=== PATIENT | female | born 1960 | race Caucasian/White ===

== ENCOUNTER → 2019-09-28 09:20 | Outpatient (BNVA) | payer MEDICARE, SELFPAY | PROVIDERS: Visit Provider Family Medicine | DX: I10 Essential (primary) hypertension (principal); E11.9 Type 2 diabetes mellitus without complications; Z79.4 Long term (current) use of insulin; E78.5 Hyperlipidemia, unspecified; E55.9 Vitamin D deficiency, unspecified; E66.9 Obesity, unspecified | CPT/HCPCS: 80053; 80061; 82044; 82306; 83036; 85025 ==

== ENCOUNTER 2019-10-17 16:27 | Emergency (ER) | payer MEDICARE, SELFPAY ==
[2019-10-17 16:44] VITALS: BP 128/69; PULSE 75; RESP 16; TEMP 36.6; O2SAT 96; BMI 35.6
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
[2019-10-17 18:03] VITALS: BP 141/80; PULSE 74; RESP 16; O2SAT 96
--- NOTE | 2019-10-17 18:05 | PC.NURSE ---
UPON ASSESSMENT PT IS IN NAD. PT STATES THAT SHE HAD A GROUND LEVEL FALL 10/11 AND NOW CO LF LEFT LATERAL CHEST PAIN.. PT CO OF INCREASED PAIN WITH MOVEMENT. PT DENIES ANY SOB. PT BREATHING IS NONLABORED. RATE AND RHYTHM ARE WNL. PT LUNG SOUNDS TO POSTERIOR AUSCULTATION ARE CLEAR AND EQUAL. IS A&OX3 PT IS CALM AND COOPERATIVE. PT SKIN IS WARM DRY AND PINK.
[2019-10-17] MEDS: ibuprofen 600 mg Tablet PO (18:10)
[2019-10-17 19:57] VITALS: BP 136/78; PULSE 73; RESP 16; O2SAT 97
== END 2019-10-17 19:58 | disposition home or self-care (01) ==
PROVIDERS: Emergency Provider Physician Assistant; PCP Family Medicine
DX: R07.81 Pleurodynia (principal); Z79.84 Long term (current) use of oral hypoglycemic drugs; E78.5 Hyperlipidemia, unspecified; I10 Essential (primary) hypertension; E11.9 Type 2 diabetes mellitus without complications
CPT/HCPCS: 12345; 71101; 76705; 99281; 99283

== ENCOUNTER → 2020-01-05 10:54 | Outpatient (BNVA) | payer MEDICARE, SELFPAY | PROVIDERS: PCP Family Medicine; Visit Provider Family Medicine | DX: E11.9 Type 2 diabetes mellitus without complications (principal); Z79.4 Long term (current) use of insulin | CPT/HCPCS: 80053; 83036 ==

== ENCOUNTER 2020-01-30 11:00 | Outpatient (CLI) | payer MEDICARE, SELFPAY | END 2020-01-30 11:01 | disposition home or self-care (01) | LOC: SLEEP 02-01 11:00 | PROVIDERS: PCP Family Medicine; Visit Provider Family Medicine | DX: G47.34 Idiopathic sleep related nonobstructive alveolar hypoventilation (principal) | CPT/HCPCS: 94762 ==

== ENCOUNTER → 2020-02-03 13:39 | Outpatient (BNVA) | payer MEDICARE, SELFPAY | PROVIDERS: PCP Family Medicine; Visit Provider Family Medicine | DX: M79.641 Pain in right hand (principal); M79.642 Pain in left hand; B86 Scabies | CPT/HCPCS: 85651; 86038; 86140; 86431 ==

== ENCOUNTER → 2020-02-21 12:45 | Outpatient (BNVA) | payer MEDICARE, SELFPAY | PROVIDERS: PCP Family Medicine; Visit Provider Internal Medicine | DX: R76.8 Other specified abnormal immunological findings in serum (principal); M25.50 Pain in unspecified joint; Z11.59 Encounter for screening for other viral diseases; Z11.1 Encounter for screening for respiratory tuberculosis; J34.89 Other specified disorders of nose and nasal sinuses; M54.2 Cervicalgia; Z51.81 Encounter for therapeutic drug level monitoring; M19.042 Primary osteoarthritis, left hand; M19.041 Primary osteoarthritis, right hand; M32.9 Systemic lupus erythematosus, unspecified; D86.9 Sarcoidosis, unspecified | CPT/HCPCS: 36415; 72040; 73120; 85025; 86480; 86704; 86803; 87340; 99203 ==

== ENCOUNTER 2020-02-21 14:02 | Outpatient (CLI) | payer MEDICARE, SELFPAY ==
--- NOTE | 2020-02-21 14:28 | XRR_ITS ---
PROCEDURE INFORMATION: Exam: XR Left Hand Exam date and time: 02/21/2020 2:30 PM Age: 59 years old Clinical indication: Left; Patient HX: C/O hand pain. Elevated abnormal labs; Additional info: R76.8 - other specified abnormal immunological findings in serum TECHNIQUE: Imaging protocol: XR Left hand. Views: 1 or 2 views. COMPARISON: No relevant prior studies available. FINDINGS: Bones/joints: There is moderate osteoarthritis with interphalangeal joint narrowing of multiple digits. Negative for acute bony abnormality is seen. Soft tissues: Normal. XR/XR hand LT 2V [id number] IMPRESSION: 1. Moderate osteoarthritis 2. Otherwise No acute findings.
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
--- NOTE | 2020-02-21 14:28 | XRR_ITS ---
PROCEDURE INFORMATION: Exam: XR Cervical Spine, 2 or 3 Views Exam date and time: 02/21/2020 2:30 PM Age: 59 years old Clinical indication: Neck pain and other: Head pain posterior; Patient HX: C/O head pain posterior; Chronic sinuses issues in past; Additional info: R76.8 - other specified abnormal immunological findings in serum TECHNIQUE: Imaging protocol: XR of the cervical spine, 2 or 3 views. COMPARISON: No relevant prior studies available. FINDINGS: Bones/joints: There is a mild osteoarthritis seen with intervertebral disc space narrowing and bone spurs at multiple levels. No acute fracture. There is loss of cervical lordosis which may reflect muscle spasm. There is minimal spondylolisthesis C2-C3. There is no instability with flexion and extension maneuvers. Soft tissues: Unremarkable. XR/XR cervical spine fl/ex [id number] IMPRESSION: 1. No acute bone abnormality. 2. Minimal anterolisthesis C2-C3. 3. No instability with flexion and extension
== END 2020-02-21 14:03 | disposition home or self-care (01) ==
PROVIDERS: PCP Family Medicine; Visit Provider Internal Medicine
DX: Z51.81 Encounter for therapeutic drug level monitoring (principal); R76.8 Other specified abnormal immunological findings in serum; M19.042 Primary osteoarthritis, left hand; M19.041 Primary osteoarthritis, right hand; M32.9 Systemic lupus erythematosus, unspecified; D86.9 Sarcoidosis, unspecified
CPT/HCPCS: 72040; 73120; 85025; 86480; 86704; 86803; 87340

== ENCOUNTER → 2020-03-19 14:27 | Outpatient (BNVA) | payer MEDICARE, SELFPAY | PROVIDERS: PCP Family Medicine; Visit Provider Internal Medicine | DX: M05.9 Rheumatoid arthritis with rheumatoid factor, unspecified (principal) | CPT/HCPCS: 99213; 99214 ==

== ENCOUNTER → 2020-04-30 10:31 | Outpatient (BNVA) | payer MEDICARE, SELFPAY | PROVIDERS: PCP Family Medicine; Visit Provider Family Medicine | DX: E11.9 Type 2 diabetes mellitus without complications (principal); I10 Essential (primary) hypertension; E78.5 Hyperlipidemia, unspecified; L65.9 Nonscarring hair loss, unspecified; Z79.4 Long term (current) use of insulin | CPT/HCPCS: 80053; 80061; 82043; 83036; 84443 ==

== ENCOUNTER 2020-05-03 12:05 | Emergency (ER) | payer MEDICARE, SELFPAY ==
[2020-05-03 12:35] VITALS: BP 103/60; PULSE 110; RESP 16; TEMP 37.1; O2SAT 96; BMI 35.6
--- NOTE | 2020-05-03 12:57 | ECG_ITS ---
[facility] Test Date: 2020-05-03 Pat Name: Shantelle Dent Department: Room: Gender: Female Precast Molder: : 1960 Requested By: Fatuma Lee Order Number: [id number] Reading MD: KOFFI MALONE Measurements Intervals [place] Rate: 89 P: 53 VA: 183 QRS: 49 QRSD: 95 T: 59 QT: 384 QTc: 468 Interpretive Statements SINUS RHYTHM POSSIBLE ANTERIOR MYOCARDIAL INFARCTION , PROBABLY OLD [30 ms Q WAVE IN V3/V4, OR R < 0.2 mV IN V4] No previous ECG available for comparison Electronically Signed On 05-03-2020 18:17:00 CAN HANDLER by KOFFI MALONE [id number]
--- NOTE | 2020-05-03 12:57 | XR_ITS ---
WS: [id number] PORTABLE CHEST HISTORY: SOB COMPARISON: 10/17/2019 Lungs are clear and well expanded. No pleural effusion or pneumothorax. Cardiac size: Normal. Mediastinum/Aorta: Normal mediastinum. No osseous abnormality seen. XR/XR chest 1V portable [id number] IMPRESSION: Unremarkable portable chest.
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
[2020-05-03 13:23] LABS: Basophils # 0.1 10^3/uL (0.0-0.1); Basophils % 0.7 %; Eosinophils # 0.1 10^3/uL (0.0-0.8); Hematocrit 39.9 % (37.0-47.0); Hemoglobin 13.2 g/dL (11.5-15.3); Lymphocytes # 3.4 10^3/uL (0.8-4.8); Lymphocytes % 30.5 %; Mean Corpuscular HGB Conc 33.1 g/dL (30.0-36.0); Mean Corpuscular Hemoglobin 31.8 pg (28.0-34.0); Mean Corpuscular Volume 96.1 fL (81-99); Mean Platelet Volume 9.1 fL (7.4-10.4); Monocytes # 0.6 10^3/uL (0.2-0.9); Monocytes % 5.2 %; Neutrophils # 6.88 10^3/uL (1.8-7.7); Neutrophils % 62.3 %; Nucleated Red Blood Cells % 0 %; Platelet Count 369 10^3/cmm (130-400); Red Blood Count 4.15 10^6/uL (4.1-5.3); Red Cell Distribution Width 12.4 % (12.1-15.1); White Blood Count 11.1 10^3/uL (4.0-10.0)
[2020-05-03 13:38] LABS: Alanine Aminotransferase 27 U/L (0-33); Albumin Level 4.2 g/dL (3.5-5.2); Alkaline Phosphatase 89 IU/L (35-105); Anion Gap 22.5 (5-19); Aspartate Amino Transferase 17 U/L (0-32); Blood Urea Nitrogen 21 mg/dL (8-23); Calcium 9.4 mg/dL (8.5-10.5); Carbon Dioxide 22 mmol/L (22-29); Chloride 97 mmol/L (98-107); Glomerular Filtration Rate 56.2 mL/min (90-130); Glucose 265 mg/dL (65-115); Lipase 59 U/L (13-60); Osmolality Calculated 298 mOsm/kg (285-295); Potassium 3.5 mmol/L (3.5-5.1); Sodium 138 mmol/L (136-145); Total Bilirubin 0.3 mg/dL (0.15-1.2); Total Protein 7.2 g/dL (6.6-8.7)
[2020-05-03 13:39] LABS: Troponin(5th) Baseline 6 ng/L (0-10)
--- NOTE | 2020-05-03 14:19 | CT_ITS ---
WS: [id number] CT THORACIC SPINE HISTORY: scapula, thoracic spine pain TECHNIQUE: Contiguous 2.5 mm axial images are reviewed to thoracic spine. Images are reformatted in s agittal and coronal planes. All CT scans at [facility] use at least one of these dose opt imization techniques: automated exposure control; mA and/or kV adjustment per patient size (includes targeted exams where dose is matched to clinical indication); or iterative reconstruction. DLP: 2014.08 mGy.cm COMPARISON: None available. Normal posterior thoracic alignment. Very mild disc space narrowing and endplate osteophytes througho ut. No fractures. No central or foraminal stenosis. There is increased soft tissue within the T6-7 LE FT foramen which may be a nerve root sleeve diverticulum. Additional similar increased soft tissue in the T8-9 foramen. No erosion of the vertebral bodies or widening of the foramen. Paravertebral soft tissues are negative. CT/CT thoracic spin wo con* [id number] IMPRESSION: 1. No fracture or significant stenosis. 2. Multilevel mild spondylosis. 3. Minimal soft tissue thickening in the LEFT T6-7 and RIGHT T8-9 foramen. Fav or these are probably benign nerve root sleeve diverticula. No erosive changes or foraminal widening.
--- NOTE | 2020-05-03 14:57 | ECG_ITS ---
[facility] Test Date: 2020-05-03 Pat Name: Shantelle Dent Department: Room: Gender: Female Emergency Planning And Response Manager: : 1960 Requested By: Fatuma Lee Order Number: [id number] Reading MD: KOFFI MALONE Measurements Intervals Rogers Rate: 84 P: 52 MS: 200 QRS: 66 QRSD: 89 T: 62 QT: 386 QTc: 459 Interpretive Statements SINUS RHYTHM Compared to ECG 05/03/2020 13:14:11 Myocardial infarct finding no longer present Electronically Signed On 05-03-2020 18:19:09 SCREWDOWN OPERATOR by KOFFI MALONE [id number]
[2020-05-03 15:33] LABS: Troponin 5 2HR Delta 0 ABS# (0-10)
[2020-05-03 15:56] VITALS: BP 125/80; PULSE 84; RESP 18; O2SAT 97
== END 2020-05-03 15:56 | disposition home or self-care (01) ==
PROVIDERS: Emergency Provider Nurse Practitioner Family; PCP Family Medicine
DX: M47.814 Spondylosis without myelopathy or radiculopathy, thoracic region (principal); Z79.84 Long term (current) use of oral hypoglycemic drugs; E78.5 Hyperlipidemia, unspecified; I10 Essential (primary) hypertension; E11.9 Type 2 diabetes mellitus without complications
CPT/HCPCS: 36415; 71045; 72128; 80053; 83690; 84484; 85025; 93005; 99283

== ENCOUNTER → 2020-05-30 13:54 | Outpatient (BNVA) | payer MEDICARE, SELFPAY | PROVIDERS: PCP Family Medicine; Visit Provider Internal Medicine | DX: E11.9 Type 2 diabetes mellitus without complications (principal); Z79.4 Long term (current) use of insulin; E78.5 Hyperlipidemia, unspecified; N17.9 Acute kidney failure, unspecified | CPT/HCPCS: 99205 ==

== ENCOUNTER 2020-06-07 06:00 | Outpatient (CLI) | payer MEDICARE, SELFPAY | END 2020-06-07 06:01 | disposition home or self-care (01) | PROVIDERS: PCP Family Medicine; Visit Provider Internal Medicine | DX: N17.9 Acute kidney failure, unspecified (principal) | CPT/HCPCS: 80048 ==

== ENCOUNTER → 2020-06-13 14:52 | Outpatient (BNVA) | payer MEDICARE, SELFPAY | PROVIDERS: PCP Family Medicine; Visit Provider Internal Medicine | DX: E11.40 Type 2 diabetes mellitus with diabetic neuropathy, unspecified (principal); Z79.4 Long term (current) use of insulin; E66.9 Obesity, unspecified | CPT/HCPCS: 99214 ==

== ENCOUNTER 2020-07-14 08:21 | Emergency (ER) | payer MEDICARE, SELFPAY ==
[2020-07-14 08:25] VITALS: BP 140/67; PULSE 75; RESP 16; TEMP 36.3; O2SAT 97; BMI 38.2
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
--- NOTE | 2020-07-14 08:46 | ECG_ITS ---
[facility] Test Date: 2020-07-14 Pat Name: Shantelle Dent Department: Room: Gender: Female Compensation Manager: : 1960 Requested By: Aaron Mast Order Number: [id number] Ramos MD: KOFFI MALONE Measurements Intervals [place] Rate: 62 P: 37 HI: 241 QRS: 22 QRSD: 77 T: 41 QT: 398 QTc: 407 Interpretive Statements SINUS RHYTHM WITH FIRST DEGREE AV BLOCK LOW QRS VOLTAGE IN PRECORDIAL LEADS [QRS DEFLECTION < 1.0 mV IN CHEST LEADS] POSSIBLE ANTERIOR MYOCARDIAL INFARCTION , PROBABLY OLD [30 ms Q WAVE IN V3/V4, OR R < 0.2 mV IN V4] Compared to ECG 05/03/2020 14:33:11 First degree AV block now present Low QRS voltage now present Myocardial infarct finding now present Electronically Signed On 07-15-2020 22:25:57 CDT by KOFFI MALONE [email or web address]
[2020-07-14 09:24] LABS: Basophils # 0.1 10^3/uL (0.0-0.1); Basophils % 0.6 %; Eosinophils # 0.1 10^3/uL (0.0-0.8); Eosinophils % 1.3 %; Lymphocytes # 3.7 10^3/uL (0.8-4.8); Lymphocytes % 35.2 %; Mean Corpuscular HGB Conc 32.4 g/dL (30.0-36.0); Mean Corpuscular Hemoglobin 31.6 pg (28.0-34.0); Mean Corpuscular Volume 97.4 fL (81-99); Mean Platelet Volume 9.3 fL (7.4-10.4); Monocytes # 0.7 10^3/uL (0.2-0.9); Monocytes % 6.3 %; Neutrophils # 5.85 10^3/uL (1.8-7.7); Neutrophils % 56.2 %; Nucleated Red Blood Cells % 0 %; Platelet Count 319 10^3/cmm (130-400); Red Cell Distribution Width 12.2 % (12.1-15.1); White Blood Count 10.4 10^3/uL (4.0-10.0)
[2020-07-14 09:46] LABS: Alanine Aminotransferase 22 U/L (0-33); Alkaline Phosphatase 77 IU/L (35-105); Anion Gap 15.3 (5-19); Aspartate Amino Transferase 15 U/L (0-32); Blood Urea Nitrogen 19 mg/dL (8-23); Calcium 9.3 mg/dL (8.5-10.5); Carbon Dioxide 28 mmol/L (22-29); Chloride 101 mmol/L (98-107); Globulin 2.1 g/dL (1.3-4.6); Glomerular Filtration Rate 101.3 mL/min (90-130); Glucose 137 mg/dL (65-115); Lipase 90 U/L (13-60); Osmolality Calculated 294 mOsm/kg (285-295); Potassium 4.3 mmol/L (3.5-5.1); Sodium 140 mmol/L (136-145); Total Bilirubin 0.3 mg/dL (0.15-1.2); Total Protein 6.1 g/dL (6.6-8.7)
[2020-07-14 09:47] LABS: Troponin T (5th) Once 7 ng/L (0-10)
[2020-07-14 09:59] LABS: Add Urine Microscopic? YES; Bilirubin Urine Neg (Negative); Blood Urine Neg (Negative); Glucose Urine UA Norm (Normal); Ketones Urine Negative (Negative); Leukocyte Esterase Urine 1+ (Negative); Nitrate Urine Negative (Negative); Protein Urine Neg (Negative); Urine Appearance Hazy (CLEAR); Urine Color Yellow (Yellow); Urobilinogen Urine Norm (Negative); pH Urine 5 (5-7)
[2020-07-14 10:23] LABS: Bacteria Urine 1+ /hpf; Mucus Urine 1+ /hpf; Squamous Epithelial Cell Urine 15-25 /hpf (0-5)
[2020-07-14 10:24] LABS: Add Urine Culture? No
[2020-07-14 10:38] VITALS: BP 133/51; PULSE 63; RESP 16; O2SAT 97
== END 2020-07-14 10:45 | disposition home or self-care (01) ==
PROVIDERS: Emergency Provider Nurse Practitioner Family; PCP Family Medicine
DX: M54.5 Low back pain (principal); N39.0 Urinary tract infection, site not specified; E78.5 Hyperlipidemia, unspecified; I10 Essential (primary) hypertension; E11.9 Type 2 diabetes mellitus without complications; Z79.4 Long term (current) use of insulin
CPT/HCPCS: 80053; 81001; 83690; 84484; 85025; 93005; 99283

== ENCOUNTER → 2020-09-05 09:00 | Outpatient (BNVA) | payer MEDICARE, SELFPAY | PROVIDERS: PCP Family Medicine; Visit Provider Family Medicine | DX: E78.5 Hyperlipidemia, unspecified (principal); E11.9 Type 2 diabetes mellitus without complications; Z79.4 Long term (current) use of insulin; R30.0 Dysuria; I10 Essential (primary) hypertension | CPT/HCPCS: 80053; 80061; 81003; 83036 ==

== ENCOUNTER → 2021-01-28 08:57 | Outpatient (BNVA) | payer MEDICARE, SELFPAY | PROVIDERS: PCP Family Medicine; Visit Provider Family Medicine | DX: R10.9 Unspecified abdominal pain (principal); Z79.4 Long term (current) use of insulin; E11.40 Type 2 diabetes mellitus with diabetic neuropathy, unspecified; E78.5 Hyperlipidemia, unspecified | CPT/HCPCS: 80053; 80061; 81000; 82043; 83036 ==

== ENCOUNTER → 2021-03-11 14:10 | Outpatient (BNVA) | payer MEDICARE, SELFPAY | PROVIDERS: PCP Family Medicine; Visit Provider Internal Medicine | DX: E11.40 Type 2 diabetes mellitus with diabetic neuropathy, unspecified (principal); E66.9 Obesity, unspecified; E78.5 Hyperlipidemia, unspecified; Z79.4 Long term (current) use of insulin; Z79.84 Long term (current) use of oral hypoglycemic drugs; Z68.38 Body mass index [BMI] 38.0-38.9, adult | CPT/HCPCS: 99214 ==

== ENCOUNTER → 2021-06-10 14:08 | Outpatient (BNVA) | payer MEDICARE, SELFPAY | PROVIDERS: PCP Family Medicine; Visit Provider Internal Medicine | DX: E11.40 Type 2 diabetes mellitus with diabetic neuropathy, unspecified (principal); E78.5 Hyperlipidemia, unspecified; E55.9 Vitamin D deficiency, unspecified; E66.9 Obesity, unspecified; Z79.4 Long term (current) use of insulin; Z79.84 Long term (current) use of oral hypoglycemic drugs; Z68.41 Body mass index [BMI] 40.0-44.9, adult | CPT/HCPCS: 99214 ==

== ENCOUNTER → 2021-06-11 13:36 | Outpatient (BNVA) | payer MEDICARE, SELFPAY | PROVIDERS: PCP Family Medicine; Visit Provider Internal Medicine | DX: E11.9 Type 2 diabetes mellitus without complications (principal); E55.9 Vitamin D deficiency, unspecified; E78.5 Hyperlipidemia, unspecified; Z79.4 Long term (current) use of insulin; N17.9 Acute kidney failure, unspecified | CPT/HCPCS: 80053; 80061; 82043; 82306; 82607; 83036 ==

== ENCOUNTER 2021-07-26 02:06 | Emergency (ER) | payer MEDICARE, SELFPAY ==
--- NOTE | 2021-07-26 02:17 | XRR_ITS ---
PROCEDURE INFORMATION: Exam: XR Chest Exam date and time: 07/26/2021 2:26 AM Age: 61 years old Clinical indication: Patient HX: Patient states exposure to black mold. ; Additional info: SOB TECHNIQUE: Imaging protocol: XR of the chest. Views: 1 view. COMPARISON: CR XR chest 1V portable [id number] 05/03/2020 1:16 PM FINDINGS: Lungs: Unremarkable. No consolidation. Pleural spaces: Unremarkable. No pleural effusion. No pneumothorax. Heart/Mediastinum: Unremarkable. No cardiomegaly. Bones/joints: Unremarkable. XR/XR chest 1V portable [id number] IMPRESSION: No acute findings.
[2021-07-26 02:20] VITALS: BP 174/84; PULSE 74; RESP 18; TEMP 36.6; O2SAT 98; BMI 40.8
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
--- NOTE | 2021-07-29 06:02 | DCPLANNER ---
Addendum entered by Cyndi Santiago 08/23/21 12:00: project account manager called the office of Dr. Patterson to confirm that patient had been seen. project account manager was told that clinic called and left a voicemail for patient to call clinic to schedule an appointment. Original Note: project account manager had message to schedule a follow up appointment for patient with Dr. Patterson. project account manager faxed patients information to the office of Dr. Patterson, who will call patient with appointment information.
== END 2021-07-26 02:54 | disposition home or self-care (01) ==
PROVIDERS: Emergency Provider Emergency Medicine; PCP Family Medicine
DX: Z77.120 Contact with and (suspected) exposure to mold (toxic) (principal); H57.10 Ocular pain, unspecified eye
CPT/HCPCS: 71045; 99283

== ENCOUNTER 2021-08-24 17:46 | Emergency (ER) | payer MEDICARE, SELFPAY ==
[2021-08-24 18:12] VITALS: BP 138/86; PULSE 114; RESP 16; TEMP 37.1; O2SAT 97; BMI 39.1
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
--- NOTE | 2021-08-26 12:27 | DCPLANNER ---
Addendum entered by Cyndi Santiago 09/02/21 08:23: retail bakery manager was told that with no diagnosed infection that this was not an appropriate referral to the clinic. retail bakery manager called patient and informed patient of this. Original Note: retail bakery manager had message to schedule a follow up appointment for patient with infectious disease. retail bakery manager sent patients information to the front office staff at infectious disease. Patients information will be printed and reviewed. Clinic will call patient with appointment information.
== END 2021-08-24 19:20 | disposition home or self-care (01) ==
PROVIDERS: Emergency Provider Nurse Practitioner Family; PCP Family Medicine
DX: Z77.120 Contact with and (suspected) exposure to mold (toxic) (principal); D18.01 Hemangioma of skin and subcutaneous tissue
CPT/HCPCS: 99283

== ENCOUNTER → 2021-08-27 12:28 | Outpatient (BNVA) | payer MEDICARE, SELFPAY | PROVIDERS: PCP Family Medicine; Visit Provider Otolaryngology | DX: Z71.1 Person with feared health complaint in whom no diagnosis is made (principal); Z77.120 Contact with and (suspected) exposure to mold (toxic) | CPT/HCPCS: 99212; 99213 ==

== ENCOUNTER → 2021-08-29 15:06 | Outpatient (BNVA) | payer MEDICARE, SELFPAY | PROVIDERS: PCP Family Medicine; Visit Provider Family Medicine Adult Medicine | DX: Z77.120 Contact with and (suspected) exposure to mold (toxic) (principal); Z71.1 Person with feared health complaint in whom no diagnosis is made; J30.2 Other seasonal allergic rhinitis; I10 Essential (primary) hypertension; E66.9 Obesity, unspecified; E11.9 Type 2 diabetes mellitus without complications; Z79.4 Long term (current) use of insulin; E78.5 Hyperlipidemia, unspecified | CPT/HCPCS: 82785; 86003 ==

== ENCOUNTER → 2021-09-30 08:23 | Outpatient (BNVA) | payer MEDICARE, SELFPAY | PROVIDERS: Visit Provider Internal Medicine | DX: E11.40 Type 2 diabetes mellitus with diabetic neuropathy, unspecified (principal); E78.5 Hyperlipidemia, unspecified; E55.9 Vitamin D deficiency, unspecified; E66.9 Obesity, unspecified; Z79.4 Long term (current) use of insulin; Z79.84 Long term (current) use of oral hypoglycemic drugs; Z68.38 Body mass index [BMI] 38.0-38.9, adult | CPT/HCPCS: 99214 ==

== ENCOUNTER → 2021-10-01 10:28 | Outpatient (BNVA) | payer MEDICARE, SELFPAY | PROVIDERS: Visit Provider Internal Medicine | DX: E55.9 Vitamin D deficiency, unspecified (principal); E11.9 Type 2 diabetes mellitus without complications; Z79.4 Long term (current) use of insulin; E78.5 Hyperlipidemia, unspecified; E11.40 Type 2 diabetes mellitus with diabetic neuropathy, unspecified | CPT/HCPCS: 80053; 80061; 82306; 83036 ==

== ENCOUNTER 2021-12-26 11:56 | Emergency (ER) | payer MEDICARE, SELFPAY ==
[2021-12-26 12:02] VITALS: BP 155/91; PULSE 87; RESP 22; TEMP 36.4; O2SAT 97; BMI 40.2
--- NOTE | 2021-12-26 12:07 | ECG_ITS ---
[facility] Test Date: 2021-12-26 Pat Name: Shantelle Dent Department: Room: Gender: Female Hostel Parent: : 1960 Requested By: Toy Cho Order Number: [id number] Ramos MD: Isabella Mejia M.D. Measurements Intervals [place] Rate: 68 P: 32 LA: 184 QRS: 21 QRSD: 94 T: 66 QT: 398 QTc: 426 Interpretive Statements SINUS RHYTHM POSSIBLE LEFT ATRIAL ENLARGEMENT [-0.1mV P-WAVE IN V1/V2] POSSIBLE ANTERIOR MYOCARDIAL INFARCTION , PROBABLY OLD [30 ms Q WAVE IN V3/V4, OR R < 0.2 mV IN V4] Compared to ECG 07/14/2020 09:05:10 First degree AV block no longer present Myocardial infarct finding still present Electronically Signed On 12-26-2021 12:50:16 CDT by Isabella Mejia M.D. [id number]
--- NOTE | 2021-12-26 13:58 | XRR_ITS ---
PROCEDURE INFORMATION: Exam: XR Chest Exam date and time: 12/26/2021 2:12 PM Age: 61 years old Clinical indication: Pain; Angina pectoris; Patient HX: Heart palp. , Cp; Additional info: Chest pain TECHNIQUE: Imaging protocol: Radiologic exam of the chest. Views: 1 view. COMPARISON: CR XR chest 1V portable [id number] 07/26/2021 2:26 AM FINDINGS: Lungs: Unremarkable. No consolidation. Pleural spaces: Unremarkable. No pleural effusion. No pneumothorax. Heart/Mediastinum: Unremarkable. No cardiomegaly. Bones/joints: Unremarkable. XR/XR chest 1V portable [id number] IMPRESSION: No acute findings.
--- NOTE | 2021-12-26 14:00 | W.ED.GENADLT ---
HPI - General Adult General: Chief complaint: Arrhythmia/Palpitations Stated complaint: heart palp Time Seen by Provider: 12/26/21 13:56 History of Present Illness: Patient is a 61-year-old female with history of diabetes, hypertension, hyperlipidemia presenting to the emergency room for concerns of palpitation and request for oxygen tank. Patient tells me that for the last 2 months she has not had any oxygen today. Patient tells me at night she usually wakes up in the middle no food shortness of breath. Patient denies any formal diagnosis obstructive sleep apnea. Patient tells me that she normally uses 2 L oxygen at night up until 2 month ago when she had difficulty obtaining home oxygen due to logistic issues. Patient came into the emergency room requesting for oxygen today stating that she is still having issues getting oxygen at home. It is, patient reports 1 episode of chest pressure yesterday afternoon. Patient denies any exertional chest pain pleuritic chest pain, squeezing chest pressure at the present time. Denies nausea/vomiting, fever/chill, chest pain, shortness of breath, abdominal pain, dysuria/hematuria/polyuria, diarrhea/melena/hematochezia. In terms of her palpitations, patient has some palpitations yesterday but denies syncope or any other associated symptoms. Onset:chronically x 2 months Duration:ongoing Location:home Severity:moderate Associated symptoms: Reports dyspnea and palpitations; Deny chest pain, nausea, rash or vomiting Review of Systems Const: Denies: fever(s) or chills Eyes: Denies: change in vision ENMT: Denies: mouth pain Card: Reports: palpitations; Denies: chest pain Resp: Reports: dyspnea; Denies: non-productive cough GI: Denies: abdominal pain, nausea, vomiting or diarrhea : Denies: dysuria Musc: Denies: extremity pain Skin/Breast: Denies: rash or new lesions Neuro: Denies: weakness in extremities Psych: Reports: other (Normal mood) Lyle/Lymph: Denies: easy bruising [facility] PFSH: Medical History (Updated 12/26/21 @ 14:56 by Eugenio Whitfield MD) BHUMI (acute kidney injury) Arthralgia Dyslipidemia Dyspnea Essential hypertension Insomnia Nocturnal hypoxia Paresthesias Positive anti-CCP test Sinus pressure Type 2 diabetes mellitus, with long-term current use of insulin Surgical History H/O sinus surgery History of cholecystectomy History of skin graft History of tonsillectomy Family History Other Cancer Diabetes Social History Smoking and tobacco status: never smoked Alcohol intake: never Physical Exam Const: COMMON NORMALS: alert HENMT: COMMON NORMALS: atraumatic HEAD & SCALP: atraumatic MOUTH: moist mucous membranes not abnormal Eye: COMMON NORMALS: EOMs intact bilaterally and conjunctivae normal CONJUNCTIVA: Yes conjunctivae normal Neck/C-Spine: COMMON NORMALS: full ROM and supple Resp: COMMON NORMALS: normal respiratory effort and clear to auscultation bilaterally AUSCULTATION: clear to auscultation bilaterally Cardio: COMMON NORMALS: regular rate RATE: regular rate GI: COMMON NORMALS: Soft to palpation and non-tender PALPATION: Yes Soft to palpation OTHER: No focal TTP. NO guarding rebound, guarding, rigidity. No CVA tenderness to percussion. Neg Valle/Neg McBurney's point tenderness, no suprabupic tenderness to palpation. Extremity: COMMON NORMALS: full ROM Neuro: SENSORIUM/ORIENTATION: Yes alert MOTOR EXAM: No Abnormal motor strength present and Other motor observations present (no focal motor deficits) Psych: COMMON NORMALS: speech normal SPEECH: Yes normal speech MOOD & AFFECT: Yes euthymic mood Course Vital Signs: Vital signs: Vital Signs Temperature 97.5 F L 12/26/21 12:02 Pulse Rate 56 L 12/26/21 15:26 Respiratory Rate 18 12/26/21 15:26 Blood Pressure 147/87 12/26/21 15:02 Pulse Oximetry 98 12/26/21 15:27 Oxygen Delivery Me thod 12/26/21 15:[address] [facility] - General Adult Medical Decision Making Patient is a 61-year-old female with history of diabetes, hypertension, hyperlipidemia presenting to the emergency room for concerns of palpitation and request for oxygen tank. Patient currently denies any palpitation. Patient had no associated syncope with palpitation. Physical exam, patient is hemodynamically stable with regular rhythm. EKG not showing signs of ischemia. Patient does not appear to have any signs of Brugada, HOCM, WPW, QT prolongation on EKG. We performed her home OT evaluation. At the present time, patient does not qualify from a walking standpoint. However given the fact the patient has had chronic requirement and night, I will write patient a prescription for outpatient oxygen for 2 L. Interpreted patient's laboratory work-up, electrolytes and troponins within normal limit. At the present, do not suspect ACS or tachydysrhythmia today. Patient continues to be hemodynamically stable and able to ambulate without difficulty on reassessment. Rx oxygen for night time use. Disposition: Discharge. Patient counseled regarding diagnostic impression, treatment plan. Patient given ED strict return precautions to return for continuation, worsening, or development of new symptoms. Instructed to f/u w/ PCP regarding symptoms today. Patient verbalized understanding. Lab Data : 12/26/21 14:20 12/26/21 14:20 Radiology Impressions Chest X-Ray 12/26/21 13:58 IMPRESSION: No acute findings. Laboratory Results WBC 8.6 10^3/uL (4.0-10.0) 12/26/21 14:20 RBC 4.19 10^6/uL (4.1-5.3) 12/26/21 14:20 Hgb 13.1 g/dL (11.5-15.3) 12/26/21 14:20 Hct 39.9 % (37.0-47.0) 12/26/21 14:20 MCV 95.2 fl (81-99) 12/26/21 14:20 MCH 31.3 pg (28.0-34.0) 12/26/21 14:20 MCHC 32.8 g/dL (30.0-36.0) 12/26/21 14:20 RDW 12.7 % (12.1-15.1) 12/26/21 14:20 Plt Count 322 10^3/cmm (130-400) 12/26/21 14:20 MPV 9.1 fL (7.4-10.4) 12/26/21 14:20 Neut % (Auto) 49.8 % 12/26/21 14:20 Lymph % (Auto) 42.0 % 12/26/21 14:20 [facility] % (Auto) 5.9 % 12/26/21 14:20 Eos % (Auto) 1.4 % 12/26/21 14:20 Baso % (Auto) 0.7 % 12/26/21 14:20 Neut # (Auto) 4.30 10^3/uL (1.8-7.7) 12/26/21 14:20 Lymph # (Auto) 3.6 10^3/uL (0.8-4.8) 12/26/21 14:20 [facility] # (Auto) 0.5 10^3/uL (0.2-0.9) 12/26/21 14:20 Eos # (Auto) 0.1 10^3/uL (0.0-0.8) 12/26/21 14:20 Baso # (Auto) 0.1 10^3/uL (0.0-0.1) 12/26/21 14:20 Nucleated RBC % (auto) 0 % 12/26/21 14:20 Nucleated RBCs # 0.0 /100WBC 12/26/21 14:20 Sodium 137 mmol/L (136-145) 12/26/21 14:20 Potassium 4.0 mmol/L (3.5-5.1) 12/26/21 14:20 Chloride 98 mmol/L (98-107) 12/26/21 14:20 Carbon Dioxide 26 mmol/L (22-29) 12/26/21 14:20 Anion Gap 17.0 (5-19) 12/26/21 14:20 BUN 9 mg/dL (8-23) 12/26/21 14:20 Creatinine 0.6 mg/dL (0.5-0.9) 12/26/21 14:20 GFR Calculation 101.0 mL/min (90-130) 12/26/21 14:20 Glucose 136 mg/dL (65-115) H 12/26/21 14:20 Calculated Osmolality 285 mOsm/kg (285-295) 12/26/21 14:20 Calcium 9.5 mg/dL (8.5-10.5) 12/26/21 14:20 Magnesium 1.6 mg/dL (1.7-2.3) L 12/26/21 14:20 Troponin T Baseline 6 ng/L (0-10) 12/26/21 14:20 Imaging Data Other Imaging: Radiologist's impression: [id number] [id number] XRay Report Signed Patient: Shantelle Dent Unit #: [id number] : 1960 Age/Sex: 61 / F ADM Date: 12/26/21 Loc: ER Room/Bed: Attending Dr: Ordering Provider/Ordering MD: Eugenio Whitfield MD Date of Service: 12/26/21 Procedure(s): XR chest 1V portable [id number] Accession Number(s): [id number] Report Number: [id number] PROCEDURE INFORMATION: Exam: XR Chest Exam date and time: 12/26/2021 2:12 PM Age: 61 years old Clinical indication: Pain; Angina pectoris; Patient HX: Heart palp. , Cp; Additional info: Chest pain TECHNIQUE: Imaging protocol: Radiologic exam of the chest. Views: 1 view. COMPARISON: CR XR chest 1V portable [id number] 07/26/2021 2:26 AM FINDINGS: Lungs: Unremarkable. No consolidation. Pleural spaces: Unremarkable. No pleural effusion. No pneumothorax. Heart/Mediastinum: Unremarkable. No cardiomegaly. Bones/joints: Unremarkable. XR/XR chest 1V portable [id number] IMPRESSION: No acute findings. ? Dictated By: Elliott Kemp MD Signed By: Elliott Kemp MD Signed Date/Time: 12/26/21 1507 DD/ 1412 Discharge Plan Discharge Patient Disposition: Home Clinical Impression: Palpitations, Dyspnea Condition: Stable Prescriptions: No Action ascorbate calcium (vitamin C) 500 mg tablet 500 mg PO DAILY@0900 vitamin E 200 unit capsule 200 unit PO DAILY@0900 (DME) lancets [OneTouch Delica Lancets] 33 gauge misc See Rx Instructions .ROUTE .MEDSUPPLY Qty: 100 3RF Rx Instructions: test blood sugars three times a day (DME) lancets [OneTouch Delica Plus Lancet] 30 gauge misc See Rx Instructions .ROUTE .MEDSUPPLY Qty: 100 11RF Rx Instructions: THREE DAILY salmon oil-omega-3 fatty acids 1,000-200 mg capsule PO (DME) Home oxygen tank with humidifier and supplies See Rx Instructions .Route .MEDSUPPLY Qty: 1 0RF Rx Instructions: As directed 2 L/min with max 3 L/min at night time (DME) blood-glucose meter [OneTouch Ultra2 Meter] [facility] [place] See Rx Instructions .ROUTE .MEDSUPPLY Qty: 1 0RF Rx Instructions: As directed ([facility] [place]) OneTouch Ultra Blue Test Strip Strip See Rx Instructions .ROUTE .MEDSUPPLY Qty: 100 5RF Rx Instructions: three times daily Basaglar KwikPen U-100 Insulin 100 unit/mL (3 mL) insulin pen 55 unit SUBCUT DAILY Qty: 15 3RF Rx Instructions: Administer 55 units daily OneTouch Ultra Test Strip See Rx Instructions .ROUTE .COMPLEX Qty: 100 2RF Dose Instruction: USE TO TEST 3 TIMES DAILY Rx Instructions: USE TO TEST 3 TIMES DAILY metformin 1,000 mg tablet 1,000 mg PO BID@0900,1800 Qty: 180 0RF (DME) pen needle, diabetic [BD Ultra-Fine Evelyn Pen Needle] 32 gauge x 5/32 needle See Rx Instructions .ROUTE .MEDSUPPLY Qty: 100 3RF Rx Instructions: once daily lisinopril 20 mg tablet See Rx Instructions .ROUTE .COMPLEX Qty: 90 0RF Dose Instruction: TAKE 1 TABLET BY MOUTH EVERY DAY AT 9AM Rx Instructions: TAKE 1 TABLET BY MOUTH EVERY DAY AT 9AM hydrochlorothiazide 25 mg tablet See Rx Instructions .ROUTE .COMPLEX Qty: 90 0RF Dose Instruction: TAKE 1 TABLET BY MOUTH EVERY DAY AT 9AM Rx Instructions: TAKE 1 TABLET BY MOUTH EVERY DAY AT 9AM nifedipine 30 mg tablet extended release See Rx Instructions .ROUTE .COMPLEX Qty: 90 0RF Dose Instruction: TAKE 1 TABLET BY MOUTH EVERY DAY Rx Instructions: TAKE 1 TABLET BY MOUTH EVERY DAY triamcinolone acetonide 0.1 % cream See Rx Instructions .ROUTE .COMPLEX Qty: 80 1RF Dose Instruction: APPLY 1 APPLICATION TOPICALLY TWICE A DAY Rx Instructions: APPLY 1 APPLICATION TOPICALLY TWICE A DAY fluticasone propionate 50 mcg/actuation spray,suspension See Rx Instructions .ROUTE .COMPLEX Qty: 48 5RF Dose Instruction: SPRAY 2 SPRAYS INTO EACH NOSTRIL EVERY DAY AT 9AM NEEDED Rx Instructions: SPRAY 2 SPRAYS INTO EACH NOSTRIL EVERY DAY AT 9AM NEEDED trazodone 100 mg tablet See Rx Instructions .ROUTE .COMPLEX Qty: 90 1RF Dose Instruction: TAKE 1 TABLET BY MOUTH EVERY DAY AT BEDTIME (8PM) Rx Instructions: TAKE 1 TABLET BY MOUTH EVERY DAY AT BEDTIME (8PM) atorvastatin 20 mg tablet See Rx Instructions .ROUTE .COMPLEX Qty: 90 3RF Dose Instruction: TAKE 1 TABLET BY MOUTH EVERY DAY AT 9AM Rx Instructions: TAKE 1 TABLET BY MOUTH EVERY DAY AT 9AM vitamin B complex Tablet 1 tab PO DAILY@0900 Vitamin D3 1 cap PO DAILY@0900 ketoconazole 2 % cream 1 applic topical .qod Qty: 60 0RF Discharge Orders: Discharge ED (Routine); Ordered 12/26/21 Ordered By: Eugenio Whitfield Other Ambulatory Orders: DME: Oxygen (Order) Location: None Selected Ordered By: Eugenio Whitfield Referrals: Nils Childress MD [Primary Care Provider] - Discharge Diet: Advance as tolerated Discharge Activity: Increase activity as tolerated Patient Instructions: Heart Palpitations (ED), Dyspnea (ED) Activity Restrictions/Additional Instructions: Come back to the emergency room if you have any fever or chills, chest pain, worsening shortness of breath, worsening exertional lightheadedness, or any new or concerning complaints. Coding Level of Care Code ED Detailer Furniture for James Fwd Exam Comprehensive
[2021-12-26 14:33] LABS: Basophils # 0.1 10^3/uL (0.0-0.1); Basophils % 0.7 %; Eosinophils # 0.1 10^3/uL (0.0-0.8); Eosinophils % 1.4 %; Hematocrit 39.9 % (37.0-47.0); Hemoglobin 13.1 g/dL (11.5-15.3); Lymphocytes # 3.6 10^3/uL (0.8-4.8); Mean Corpuscular HGB Conc 32.8 g/dL (30.0-36.0); Mean Corpuscular Hemoglobin 31.3 pg (28.0-34.0); Mean Corpuscular Volume 95.2 fl (81-99); Mean Platelet Volume 9.1 fL (7.4-10.4); Monocytes # 0.5 10^3/uL (0.2-0.9); Monocytes % 5.9 %; Neutrophils % 49.8 %; Nucleated Red Blood Cells % 0 %; Platelet Count 322 10^3/cmm (130-400); Red Blood Count 4.19 10^6/uL (4.1-5.3); Red Cell Distribution Width 12.7 % (12.1-15.1); White Blood Count 8.6 10^3/uL (4.0-10.0)
[2021-12-26 14:48] LABS: Troponin(5th) Baseline 6 ng/L (0-10)
[2021-12-26 14:49] LABS: Blood Urea Nitrogen 9 mg/dL (8-23); Calcium 9.5 mg/dL (8.5-10.5); Carbon Dioxide 26 mmol/L (22-29); Chloride 98 mmol/L (98-107); Glucose 136 mg/dL (65-115); Magnesium 1.6 mg/dL (1.7-2.3); Osmolality Calculated 285 mOsm/kg (285-295); Sodium 137 mmol/L (136-145)
[2021-12-26 15:02] VITALS: BP 147/87
[2021-12-26] MEDS: ipratropium-albuterol 3 mL Neb INHALATION ×2 (15:12→15:21)
[2021-12-26 15:16] VITALS: PULSE 58; RESP 20; O2SAT 98
[2021-12-26 15:26] VITALS: PULSE 56; RESP 18; O2SAT 98
[2021-12-26 15:27] VITALS: O2SAT 91; O2SAT 98
[2021-12-26 15:48] VITALS: BP 147/87; O2SAT 98
== END 2021-12-26 15:50 | disposition home or self-care (01) ==
PROVIDERS: Emergency Provider Emergency Medicine; PCP Family Medicine Adult Medicine
DX: R00.2 Palpitations (principal); R06.00 Dyspnea, unspecified; Z79.4 Long term (current) use of insulin; Z79.84 Long term (current) use of oral hypoglycemic drugs; E78.5 Hyperlipidemia, unspecified; I10 Essential (primary) hypertension; E11.9 Type 2 diabetes mellitus without complications
CPT/HCPCS: 71045; 80048; 83735; 84484; 85025; 93005; 94640; 99285

== ENCOUNTER 2021-12-31 12:00 | Outpatient (CLI) | payer MEDICARE, SELFPAY | END 2021-12-31 12:01 | disposition home or self-care (01) | LOC: SLEEP 01-01 10:51 | PROVIDERS: PCP Family Medicine Adult Medicine; Visit Provider Family Medicine Adult Medicine | DX: G47.34 Idiopathic sleep related nonobstructive alveolar hypoventilation (principal) | CPT/HCPCS: 94762 ==

== ENCOUNTER → 2022-02-05 09:16 | Outpatient (BNVA) | payer MEDICARE, SELFPAY | PROVIDERS: PCP Family Medicine Adult Medicine; Visit Provider Internal Medicine | DX: E55.9 Vitamin D deficiency, unspecified (principal); I10 Essential (primary) hypertension; E11.9 Type 2 diabetes mellitus without complications; Z79.4 Long term (current) use of insulin; E78.5 Hyperlipidemia, unspecified | CPT/HCPCS: 80053; 80061; 83036 ==

== ENCOUNTER → 2022-05-06 13:23 | Outpatient (BNVA) | payer MEDICARE, SELFPAY | PROVIDERS: PCP Family Medicine Adult Medicine; Visit Provider Internal Medicine | DX: E11.40 Type 2 diabetes mellitus with diabetic neuropathy, unspecified (principal); E78.5 Hyperlipidemia, unspecified; E55.9 Vitamin D deficiency, unspecified; E66.9 Obesity, unspecified; Z79.4 Long term (current) use of insulin; Z79.84 Long term (current) use of oral hypoglycemic drugs; Z68.39 Body mass index [BMI] 39.0-39.9, adult | CPT/HCPCS: 99214 ==

== ENCOUNTER 2022-06-11 11:12 | Outpatient (CLI) | payer MEDICARE, SELFPAY ==
--- NOTE | 2022-06-11 11:30 | MM_ITS ---
WS: [id number] BILATERAL 3D TOMOSYNTHESIS DIGITAL DIAGNOSTIC MAMMOGRAPHY WITH CAD CLINICAL INFORMATION: PAIN HISTORY: LEFT breast pain BASELINE TECHNIQUE: Bilateral CC, MLO, and ML views. FINDINGS: Fatty replaced breasts bilaterally. Area of interest in the LEFT breast near the 6:00 position. No un derlying parenchymal abnormalities. Ultrasound described below. Otherwise No suspicious focal mass, asymmetry, calcifications, or architectural distortion. ULTRASOUND BREAST LEFT TECHNIQUE: Ultrasound left breast focused area of concern. CLINICAL INFORMATION: PAIN FINDINGS: Ultrasound LEFT breast in the area of interest 6:00 position areola. Normal parenchymal tissue. No cy stic or solid lesions. No suspicious findings. Findings are benign. Recommend return to annual screening mammography. MM/[place] [id number] IMPRESSION: BI-RADS: 2-Benign FOLLOW UP: 1 Year Follow-up Recommend return to annual screening mammography.
--- NOTE | 2022-06-11 13:32 | US_ITS ---
WS: [id number] BILATERAL 3D TOMOSYNTHESIS DIGITAL DIAGNOSTIC MAMMOGRAPHY WITH CAD CLINICAL INFORMATION: PAIN HISTORY: LEFT breast pain BASELINE TECHNIQUE: Bilateral CC, MLO, and ML views. FINDINGS: Fatty replaced breasts bilaterally. Area of interest in the LEFT breast near the 6:00 position. No un derlying parenchymal abnormalities. Ultrasound described below. Otherwise No suspicious focal mass, asymmetry, calcifications, or architectural distortion. ULTRASOUND BREAST LEFT TECHNIQUE: Ultrasound left breast focused area of concern. CLINICAL INFORMATION: PAIN FINDINGS: Ultrasound LEFT breast in the area of interest 6:00 position areola. Normal parenchymal tissue. No cy stic or solid lesions. No suspicious findings. Findings are benign. Recommend return to annual screening mammography. US/US breast LT limited* [id number] IMPRESSION: BI-RADS: 2-Benign FOLLOW UP: 1 Year Follow-up Recommend return to annual screening mammography.
== END 2022-06-11 11:13 | disposition home or self-care (01) ==
LOC: RAD 11:15
PROVIDERS: PCP Family Medicine Adult Medicine; Visit Provider Family Medicine Adult Medicine
DX: N64.4 Mastodynia (principal)
CPT/HCPCS: 76642; 77062; G0279

== ENCOUNTER → 2022-08-08 12:52 | Outpatient (BNVA) | payer MEDICARE, SELFPAY | PROVIDERS: PCP Family Medicine Adult Medicine; Visit Provider Registered Nurse Neonatal Intensive Care | DX: M54.50 Low back pain, unspecified (principal) | CPT/HCPCS: 81000 ==

== ENCOUNTER → 2022-10-06 09:22 | Outpatient (BNVA) | payer MEDICARE, SELFPAY | PROVIDERS: PCP Family Medicine Adult Medicine; Visit Provider Internal Medicine | DX: E11.40 Type 2 diabetes mellitus with diabetic neuropathy, unspecified (principal); E55.9 Vitamin D deficiency, unspecified; Z79.4 Long term (current) use of insulin; E78.5 Hyperlipidemia, unspecified | CPT/HCPCS: 80053; 80061; 82043; 82607; 82652; 83036 ==

== ENCOUNTER → 2022-10-14 14:22 | Outpatient (BNVA) | payer MEDICARE, SELFPAY | PROVIDERS: PCP Family Medicine Adult Medicine; Visit Provider Internal Medicine | DX: E11.40 Type 2 diabetes mellitus with diabetic neuropathy, unspecified (principal); E78.5 Hyperlipidemia, unspecified; Z79.4 Long term (current) use of insulin; E55.9 Vitamin D deficiency, unspecified; E66.9 Obesity, unspecified; E11.65 Type 2 diabetes mellitus with hyperglycemia; Z79.84 Long term (current) use of oral hypoglycemic drugs; Z68.39 Body mass index [BMI] 39.0-39.9, adult | CPT/HCPCS: 99214 ==

== ENCOUNTER → 2023-01-06 12:02 | Outpatient (BNVA) | payer MEDICARE, SELFPAY | PROVIDERS: PCP Family Medicine Adult Medicine; Visit Provider Internal Medicine | DX: E11.40 Type 2 diabetes mellitus with diabetic neuropathy, unspecified (principal); E55.9 Vitamin D deficiency, unspecified; E66.9 Obesity, unspecified; E78.5 Hyperlipidemia, unspecified; Z79.4 Long term (current) use of insulin | CPT/HCPCS: 80053; 80061; 82043; 83036 ==

== ENCOUNTER → 2023-01-13 11:11 | Outpatient (BNVA) | payer MEDICARE, SELFPAY | PROVIDERS: PCP Family Medicine Adult Medicine; Visit Provider Internal Medicine | DX: E78.5 Hyperlipidemia, unspecified; E11.9 Type 2 diabetes mellitus without complications; Z79.4 Long term (current) use of insulin; E55.9 Vitamin D deficiency, unspecified; E66.9 Obesity, unspecified; Z68.39 Body mass index [BMI] 39.0-39.9, adult; Z79.84 Long term (current) use of oral hypoglycemic drugs | CPT/HCPCS: 99214 ==

== ENCOUNTER → 2023-05-22 10:32 | Outpatient (BNVA) | payer MEDICARE, SELFPAY | PROVIDERS: PCP Family Medicine Adult Medicine; Visit Provider Internal Medicine | DX: E11.9 Type 2 diabetes mellitus without complications (principal); Z79.4 Long term (current) use of insulin | CPT/HCPCS: 80053; 80061; 82043; 83036 ==

== ENCOUNTER → 2023-05-29 10:33 | Outpatient (BNVA) | payer MEDICARE, SELFPAY | PROVIDERS: PCP Family Medicine Adult Medicine; Visit Provider Internal Medicine | DX: E11.40 Type 2 diabetes mellitus with diabetic neuropathy, unspecified (principal); E78.5 Hyperlipidemia, unspecified; Z79.4 Long term (current) use of insulin; E55.9 Vitamin D deficiency, unspecified; E66.9 Obesity, unspecified; Z79.84 Long term (current) use of oral hypoglycemic drugs; Z68.44 Body mass index [BMI] 60.0-69.9, adult | CPT/HCPCS: 99214 ==

== ENCOUNTER 2023-07-06 21:41 | Emergency (ER) | payer MEDICARE, SELFPAY ==
[2023-07-06 21:59] VITALS: BP 176/88; PULSE 86; RESP 16; TEMP 36.6; O2SAT 97
[2023-07-06 22:01] LABS: Glucose Point of Care 542 mg/dL (70-110)
[2023-07-06 23:01] VITALS: BP 181/87; PULSE 82; RESP 19; O2SAT 97
--- NOTE | 2023-07-06 23:09 | W.ED.RECABL ---
HPI - Recheck/Abnormal Lab/Rx General: Chief Complaint: Recheck/Abnormal Lab/Rx Stated Complaint: Blood Sugar High Time Seen by Provider: 07/06/23 23:06 History of Present Illness: Patient presents to the ER with complaints of high sugars today. Patient said on her monitor she is been checking and is only been reading high. Patient reports feeling weak and tired with excessive urination. Patient denies any fevers chills nausea vomiting diarrhea pain burning frequency with urination. Patient said the reason her blood sugar may be running high as She has been eating a lot of restaurants here recently. Review of Systems General: Reports: 10 or more systems reviewed and unremarkable except in HPI and below PFSH ED PFSH: Medical History Foreign body entering through skin Wasp sting Health care maintenance Chronic bronchitis with wheezing Dyspnea BHUMI (acute kidney injury) Paresthesias Sinus pressure Arthralgia Positive anti-CCP test Nocturnal hypoxia Essential hypertension Type 2 diabetes mellitus, with long-term current use of insulin Dyslipidemia Insomnia Surgical History H/O sinus surgery History of tonsillectomy History of cholecystectomy History of skin graft Family History Other Cancer Diabetes Social History Smoking and tobacco/nicotine status: never used tobacco/nicotine Alcohol intake: never Substance/Drug Use: never Physical Exam Const: COMMON NORMALS: no acute distress, average body habitus, patient oriented x3, no limitations, healthy appearing, alert and well nourished HENMT: COMMON NORMALS: normocephalic, atraumatic, hearing grossly normal bilaterally, external ears normal, Normal external nose present, moist oral mucous membranes and oropharynx normal HEAD & SCALP: normocephalic and atraumatic NOSE: Normal external nose present EXTERNAL EAR: Yes external ears normal Neck/C-Spine: COMMON NORMALS: no JVD Chest: COMMONS NORMALS: normal inspection of the chest and normal palpation of entire chest wall Resp: COMMON NORMALS: normal respiratory effort, No retractions, No use of accessory muscles and clear to auscultation bilaterally AUSCULTATION: clear to auscultation bilaterally Cardio: COMMON NORMALS: no JVD, regular rate, regular rhythm, S1 normal heart sound present, S2 normal heart sound present, No gallops present (Cardio), No clicks present (Cardio), No murmurs present (Cardio) and No rub (Cardio) RATE: regular rate RHYTHM: regular rhythm HEART SOUNDS: S1 normal heart sound present and S2 normal heart sound present GI: COMMON NORMALS: Normal to inspection, nondistended, normoactive bowel sounds present, Soft to palpation, non-tender, No hepatosplenomegaly present and no masses PALPATION: Yes Soft to palpation and Yes No hepatosplenomegaly present Neuro: COMMON NORMALS: patient oriented x3 SENSORIUM/ORIENTATION: Yes alert Course Vital Signs: Vital signs: Vital Signs Temperature 97.9 F 07/06/23 21:59 Pulse Rate 82 07/06/23 23:01 Respiratory Rate 19 H 07/06/23 23:01 Blood Pressure 181/87 07/06/23 23:01 Pulse Oximetry 97 07/06/23 23:01 Oxygen Delivery Me thod Room Air 07/06/23 23:01 MDM - Recheck/Abnormal Lab/Rx Medical Decision Making Patient 1 L bolus normal saline and 10 units of IV insulin. Blood sugar started coming down. Eventually came down to 292. Urine had 4+ glucose but no signs of infection. Lab work was otherwise unremarkable. These results was discussed with the patient. Patient be discharged home. Differential Diagnosis Unlikely encounter for medication refill, encounter for wound recheck, encounter for recheck of burn, encounter for removal of sutures or warfarin-induced coagulopathy Medical Records I reviewed the patient's medical records. Lab Data I reviewed the patient's lab results. 07/06/23 22:54 07/06/23 22:54 Laboratory Results WBC 9.76 10^3/uL (3.29-11.43) 07/06/23 22:54 RBC 4.21 10^6/uL (3.85-5.65) 07/06/23 22:54 Hgb 13.10 g/dL (11.27-16.99) 07/06/23 22:54 Hct 39.9 % (36-47) 07/06/23 22:54 MCV 94.8 fl (85-98) 07/06/23 22:54 MCH 31.1 pg (27-33) 07/06/23 22:54 MCHC 32.8 g/dL (30-55) 07/06/23 22:54 RDW 12.6 % (12.1-15.1) 07/06/23 22:54 Plt Count 346 10^3/cmm (157-399) 07/06/23 22:54 MPV 9.6 fL (7.4-10.4) 07/06/23 22:54 Neut % (Auto) 54.4 % 07/06/23 22:54 Lymph % (Auto) 35.8 % 07/06/23 22:54 [place] % (Auto) 7.9 % 07/06/23 22:54 Eos % (Auto) 1.0 % 07/06/23 22:54 Baso % (Auto) 0.6 % 07/06/23 22:54 Neut # (Auto) 5.31 10^3/uL (1.8-7.7) 07/06/23 22:54 Lymph # (Auto) 3.5 10^3/uL (0.8-4.8) 07/06/23 22:54 [place] # (Auto) 0.8 10^3/uL (0.2-0.9) 07/06/23 22:54 Eos # (Auto) 0.1 10^3/uL (0.0-0.8) 07/06/23 22:54 Baso # (Auto) 0.1 10^3/uL (0.0-0.1) 07/06/23 22:54 Nucleated RBC % (auto) 0 % 07/06/23:54 Nucleated RBCs # 0.0 /100WBC 07/06/23 22:54 Sodium 136 mmol/L (136-145) 07/06/23 22:54 Potassium 4.2 mmol/L (3.5-5.1) 07/06/23 22:54 Chloride 98 mmol/L (98-107) 07/06/23 22:54 Carbon Dioxide 23 mmol/L (22-29) 07/06/23 22:54 Anion Gap 19.2 (5-19) H 07/06/23 22:54 BUN 15 mg/dL (8-23) 07/06/23 22:54 Creatinine 0.7 mg/dL (0.5-0.9) 07/06/23 22:54 GFR Calculation 84.0 mL/min (90-130) L 07/06/23 22:54 Glucose 544 mg/dL (65-115) H* 07/06/23 22:54 POC Glucose 292 mg/dL (70-110) H 07/07/23 00:09 Calculated Osmolality 308 mOsm/kg (285-295) H 07/06/23 22:54 Calcium 9.7 mg/dL (8.5-10.5) 07/06/23 22:54 Total Bilirubin 0.2 mg/dL (0.15-1.2) 07/06/23 22:54 AST 18 U/L (0-32) 07/06/23 22:54 ALT 31 U/L (0-33) 07/06/23 22:54 Alkaline Phosphatase 151 U/L (35-105) H 07/06/23 22:54 Total Protein 7.4 g/dL (6.6-8.7) 07/06/23 22:54 Albumin 4.1 g/dL (3.5-5.2) 07/06/23 22:54 Globulin 3.3 g/dL (1.3-4.6) 07/06/23 22:54 Urine Color Light yellow (Yellow) 07/06/23 22:57 Urine Appearance Clear (CLEAR) 07/06/23 22:57 Urine pH 6.5 (5-7) 07/06/23 22:57 Ur Specific [place] 1.030 (1.005-1.030) 07/06/23 22:57 Urine Protein Neg (Negative) 07/06/23 22:57 Urine Glucose (UA) 4+ (Normal) H 07/06/23 22:57 Urine Ketones Negative (Negative) 07/06/23 22:57 Urine Blood Neg (Negative) 07/06/23 22:57 Urine Nitrate Negative (Negative) 07/06/23 22:57 Urine Bilirubin Neg (Negative) 07/06/23 22:57 Urine Urobilinogen Neg mg/dL (Negative) 07/06/23 22:57 Ur Leukocyte Esterase Negative (Negative) 07/06/23 22:57 Serum Ketones Negative (Negative) 07/06/23 22:54 No radiology studies performed this visit Discharge Plan Discharge Patient Disposition: Home Clinical Impression: Hyperglycemia due to diabetes mellitus Condition: Stable Prescriptions: No Action ascorbate calcium (vitamin C) 500 mg tablet 500 mg PO DAILY@0900 vitamin E 200 unit capsule 200 unit PO DAILY@0900 (DME) lancets [OneTouch Delica Lancets] 33 gauge misc See Rx Instructions .ROUTE .MEDSUPPLY Qty: 100 3RF Rx Instructions: test blood sugars three times a day (DME) lancets [OneTouch Delica Plus Lancet] 30 gauge misc See Rx Instructions .ROUTE .MEDSUPPLY Qty: 100 11RF Rx Instructions: THREE DAILY salmon oil-omega-3 fatty acids 1,000-200 mg capsule PO (DME) Home oxygen tank with humidifier and supplies See Rx Instructions .Route .MEDSUPPLY Qty: 1 0RF Rx Instructions: As directed 2 L/min with max 3 L/min at night time Combivent Respimat 20-100 mcg/actuation mist 1 puff inhalation Q6H Qty: 4 5RF fluticasone propionate 50 mcg/actuation spray,suspension See Rx Instructions .ROUTE .COMPLEX Qty: 48 5RF Dose Instruction: SPRAY 2 SPRAYS INTO EACH NOSTRIL EVERY DAY AT 9AM NEEDED Rx Instructions: SPRAY 2 SPRAYS INTO EACH NOSTRIL EVERY DAY AT 9AM NEEDED mupirocin 2 % ointment 1 applic topical TID 10 Days Qty: 15 0RF amoxicillin-pot clavulanate 875-125 mg tablet 1 tab PO BID 7 Days Qty: 14 0RF baclofen 5 mg tablet 5 mg PO BID PRN (Reason: muscle pain) Qty: 15 0RF (DME) blood-glucose meter [OneTouch Ultra2 Meter] [facility] [place] See Rx Instructions .ROUTE .MEDSUPPLY Qty: 1 0RF Rx Instructions: As directed OneTouch Ultra Test Strip See Rx Instructions .ROUTE .COMPLEX Qty: 100 2RF Dose Instruction: USE TO TEST 3 TIMES DAILY Rx Instructions: USE TO TEST 3 TIMES DAILY triamcinolone acetonide 0.1 % cream See Rx Instructions .ROUTE .COMPLEX Qty: 80 1RF Dose Instruction: APPLY 1 APPLICATION TOPICALLY TWICE A DAY Rx Instructions: APPLY 1 APPLICATION TOPICALLY TWICE A DAY trazodone 100 mg tablet See Rx Instructions .ROUTE .COMPLEX Qty: 90 1RF Dose Instruction: TAKE 1 TABLET BY MOUTH EVERY DAY AT BEDTIME (8PM) Rx Instructions: TAKE 1 TABLET BY MOUTH EVERY DAY AT BEDTIME (8PM) ([facility] [place] pen needle, diabetic [BD Ultra-Fine Mini Pen Needle] 31 gauge x 3/16 needle See Rx Instructions .ROUTE .COMPLEX Qty: 100 0RF Dose Instruction: DIRECTED Rx Instructions: DIRECTED atorvastatin 20 mg tablet See Rx Instructions .ROUTE .COMPLEX Qty: 90 3RF Dose Instruction: TAKE 1 TABLET BY MOUTH EVERY DAY AT 9AM Rx Instructions: TAKE 1 TABLET BY MOUTH EVERY DAY AT 9AM lisinopril 20 mg tablet See Rx Instructions .ROUTE .COMPLEX Qty: 90 1RF Dose Instruction: TAKE 1 TABLET BY MOUTH EVERY DAY AT 9AM Rx Instructions: TAKE 1 TABLET BY MOUTH EVERY DAY AT 9AM (DME) OneTouch Ultra Test Strip See Rx Instructions .ROUTE .COMPLEX Qty: 300 0RF Dose Instruction: USE TO TEST 3 TIMES DAILY Rx Instructions: USE TO TEST 3 TIMES DAILY Basaglar KwikPen U-100 Insulin 100 unit/mL (3 mL) insulin pen See Rx Instructions .ROUTE .COMPLEX Qty: 45 0RF Dose Instruction: INJECT 55 UNITS SUBCUTANEOUSLY DAILY FOR 90 DAYS Rx Instructions: INJECT 55 UNITS SUBCUTANEOUSLY DAILY FOR 90 DAYS nifedipine 30 mg tablet extended release See Rx Instructions .ROUTE .COMPLEX Qty: 90 0RF Dose Instruction: TAKE 1 TABLET BY MOUTH EVERY DAY Rx Instructions: TAKE 1 TABLET BY MOUTH EVERY DAY budesonide-formoterol [Symbicort] 80-4.5 mcg/actuation HFA aerosol inhaler See Rx Instructions .ROUTE .COMPLEX Qty: 10.2 0RF Dose Instruction: TAKE 2 PUFFS BY MOUTH TWICE A DAY FOR BREATHING Rx Instructions: TAKE 2 PUFFS BY MOUTH TWICE A DAY FOR BREATHING ([facility]) pen needle, diabetic [BD Evelyn 2nd Gen Pen Needle] 32 gauge x 5/32 needle See Rx Instructions .ROUTE .COMPLEX Qty: 100 1RF Dose Instruction: DIRECTED Rx Instructions: DIRECTED metformin 1,000 mg tablet See Rx Instructions .ROUTE .COMPLEX Qty: 180 0RF Dose Instruction: TAKE 1 TABLET BY MOUTH AT 9:00A.M. AND TAKE 1 TABLET AT 6:00P.M. Rx Instructions: TAKE 1 TABLET BY MOUTH AT 9:00A.M. AND TAKE 1 TABLET AT 6:00P.M. hydrochlorothiazide 25 mg tablet See Rx Instructions .ROUTE .COMPLEX Qty: 90 0RF Dose Instruction: TAKE 1 TABLET BY MOUTH EVERY DAY AT 9AM Rx Instructions: TAKE 1 TABLET BY MOUTH EVERY DAY AT 9AM loratadine 10 mg tablet See Rx Instructions .ROUTE .COMPLEX Qty: 180 0RF Dose Instruction: TAKE 1 TABLET BY MOUTH TWICE A DAY FOR ALLERGIC SYMPTOMS Rx Instructions: TAKE 1 TABLET BY MOUTH TWICE A DAY FOR ALLERGIC SYMPTOMS vitamin B complex Tablet 1 tab PO DAILY@0900 Vitamin D3 1 cap PO DAILY@0900 ketoconazole 2 % cream 1 applic topical .qod Qty: 60 0RF Discharge Orders: Discharge ED (Routine); Ordered 07/07/23 Ordered By: Eduard Patterson Referrals: Nils Childress MD [Primary Care Provider] - 1 week Patient Instructions: Diabetic Hyperglycemia (ED) Activity Restrictions/Additional Instructions: You are given 10 units of IV insulin along with 1 L normal saline and your IV. This helped your blood sugar come down to 292. All your other lab work was unremarkable. Please follow-up with your family practice physician for further evaluation and treatment. Please keep a watch on your blood sugar levels. Coding Level of Care Code ED Traffic Manager for James Friedman
[2023-07-06 23:12] LABS: Basophils # 0.1 10^3/uL (0.0-0.1); Basophils % 0.6 %; Eosinophils # 0.1 10^3/uL (0.0-0.8); Hematocrit 39.9 % (36-47); Ketone (Acetest) Serum Negative (Negative); Lymphocytes # 3.5 10^3/uL (0.8-4.8); Lymphocytes % 35.8 %; Mean Corpuscular HGB Conc 32.8 g/dL (30-55); Mean Corpuscular Hemoglobin 31.1 pg (27-33); Mean Corpuscular Volume 94.8 fl (85-98); Mean Platelet Volume 9.6 fL (7.4-10.4); Monocytes # 0.8 10^3/uL (0.2-0.9); Monocytes % 7.9 %; Neutrophils # 5.31 10^3/uL (1.8-7.7); Neutrophils % 54.4 %; Nucleated Red Blood Cells % 0 %; Platelet Count 346 10^3/cmm (157-399); Red Blood Count 4.21 10^6/uL (3.85-5.65); Red Cell Distribution Width 12.6 % (12.1-15.1); White Blood Count 9.76 10^3/uL (3.29-11.43)
[2023-07-06 23:15] VITALS: BP 181/87; PULSE 85; RESP 19; O2SAT 95
[2023-07-06 23:18] LABS: Add Urine Microscopic? NO; Charge for UA Resulting for Rev
[2023-07-06 23:20] LABS: Alanine Aminotransferase 31 U/L (0-33); Albumin Level 4.1 g/dL (3.5-5.2); Alkaline Phosphatase 151 U/L (35-105); Anion Gap 19.2 (5-19); Aspartate Amino Transferase 18 U/L (0-32); Blood Urea Nitrogen 15 mg/dL (8-23); Calcium 9.7 mg/dL (8.5-10.5); Carbon Dioxide 23 mmol/L (22-29); Chloride 98 mmol/L (98-107); Creatinine Clr Calc Pharmacy 78.2509; Globulin 3.3 g/dL (1.3-4.6); Osmolality Calculated 308 mOsm/kg (285-295); Potassium 4.2 mmol/L (3.5-5.1); Sodium 136 mmol/L (136-145); Total Bilirubin 0.2 mg/dL (0.15-1.2); Total Protein 7.4 g/dL (6.6-8.7)
[2023-07-06 23:21] LABS: Bilirubin Urine Neg (Negative); Blood Urine Neg (Negative); Glucose Urine UA 4+ (Normal); Ketones Urine Negative (Negative); Leukocyte Esterase Urine Negative (Negative); Nitrate Urine Negative (Negative); Protein Urine Neg (Negative); Urine Appearance Clear (CLEAR); Urine Color Light yellow (Yellow); Urobilinogen Urine Neg (Negative); pH Urine 6.5 (5-7)
[2023-07-06] MEDS: sodium chloride 0.9% 1,000 ML 999 ML IV (23:21)
[2023-07-06] MEDS: insulin regular-human 100 units/1 mL 10 UNIT IVP (23:21)
[2023-07-06 23:22] LABS: Glucose 544 mg/dL (65-115)
[2023-07-06 23:30] VITALS: BP 150/83; PULSE 86; RESP 21; O2SAT 97
[2023-07-07 00:12] LABS: Glucose Point of Care 292 mg/dL (70-110)
[2023-07-07 00:30] VITALS: BP 175/92; PULSE 87; RESP 19; O2SAT 96
[2023-07-07 01:26] VITALS: BP 160/71; PULSE 79; RESP 18; O2SAT 96
== END 2023-07-07 01:00 | disposition home or self-care (01) ==
PROVIDERS: Emergency Provider Emergency Medicine; PCP Family Medicine Adult Medicine
DX: E11.65 Type 2 diabetes mellitus with hyperglycemia (principal); Z79.84 Long term (current) use of oral hypoglycemic drugs; Z79.4 Long term (current) use of insulin; I10 Essential (primary) hypertension; E78.5 Hyperlipidemia, unspecified
CPT/HCPCS: 36415; 36416; 80053; 81003; 82009; 82962; 85025; 96361; 96374; 99284; J1815; J7030

== ENCOUNTER → 2023-08-28 10:37 | Outpatient (BNVA) | payer MEDICARE, SELFPAY | PROVIDERS: PCP Family Medicine Adult Medicine; Visit Provider Internal Medicine | DX: E11.40 Type 2 diabetes mellitus with diabetic neuropathy, unspecified (principal); E78.5 Hyperlipidemia, unspecified; Z79.4 Long term (current) use of insulin; E55.9 Vitamin D deficiency, unspecified; E66.9 Obesity, unspecified; Z79.84 Long term (current) use of oral hypoglycemic drugs; Z68.41 Body mass index [BMI] 40.0-44.9, adult | CPT/HCPCS: 99214 ==

== ENCOUNTER → 2023-09-10 10:19 | Outpatient (BNVA) | payer MEDICARE, SELFPAY | PROVIDERS: PCP Family Medicine Adult Medicine; Visit Provider Registered Nurse Neonatal Intensive Care | DX: E78.5 Hyperlipidemia, unspecified (principal); E11.9 Type 2 diabetes mellitus without complications; Z79.4 Long term (current) use of insulin; Z79.899 Other long term (current) drug therapy | CPT/HCPCS: 80053; 80061; 82043; 83036 ==

== ENCOUNTER → 2023-10-20 10:46 | Outpatient (BNVA) | payer MEDICARE, SELFPAY | PROVIDERS: Visit Provider Internal Medicine | DX: E11.40 Type 2 diabetes mellitus with diabetic neuropathy, unspecified (principal); E78.5 Hyperlipidemia, unspecified; Z79.4 Long term (current) use of insulin; E55.9 Vitamin D deficiency, unspecified; E66.9 Obesity, unspecified; R03.0 Elevated blood-pressure reading, without diagnosis of hypertension; Z68.41 Body mass index [BMI] 40.0-44.9, adult; Z79.84 Long term (current) use of oral hypoglycemic drugs | CPT/HCPCS: 99214 ==

== ENCOUNTER 2023-11-21 07:26 | Emergency (ER) | payer MEDICARE, SELFPAY ==
--- NOTE | 2023-11-21 07:33 | XRR_ITS ---
PROCEDURE INFORMATION: Exam: XR Left Foot Exam date and time: 11/21/2023 7:42 AM Age: 63 years old Clinical indication: Injury or trauma; Fall; Blunt trauma; Toes; Left TECHNIQUE: Imaging protocol: Radiologic exam of the left foot. Views: 3 or more views. COMPARISON: CR (LOW EXM, ) 11/21/2023 7:42 AM FINDINGS: Bones/joints: There is mild posterior and plantar calcaneal spurring. There is mild irregularity of the bases of the 3rd, 4th, and 5th proximal phalanges. There are degenerative changes of the 1st metatarsophalangeal joint. Soft tissues: Normal. XR/XR foot LT min 3V* [id number] IMPRESSION: Mild irregularity of the bases of the proximal phalanges of the 3rd, 4th, and 5th digits which may reflect remote fracture deformities. Acute fractures are felt less likely given the appearance however correlation with site of patient's tenderness is suggested and if further evaluation is indicated, follow-up radiographs in 7-10 days could be obtained
--- NOTE | 2023-11-21 07:33 | XRR_ITS ---
PROCEDURE INFORMATION: Exam: XR Left Ankle Exam date and time: 11/21/2023 7:42 AM Age: 63 years old Clinical indication: Injury or trauma; Fall; Blunt trauma; Ankle; Left TECHNIQUE: Imaging protocol: Radiologic exam of the left ankle. Views: 3 or more views. COMPARISON: CR XR foot LT min 3V* [id number] 11/21/2023 7:42 AM FINDINGS: Bones/joints: Alignment is within normal limits. There is no evidence of acute fracture or dislocation. There are mild degenerative changes of the tibiotalar joint. There is mild plantar calcaneal spurring Soft tissues: There are scattered calcifications within the soft tissue which are likely vascular in nature. XR/XR ankle LT min 3V* [id number] IMPRESSION: No evidence of acute fracture or dislocation
[2023-11-21 07:38] VITALS: BP 164/80; PULSE 71; RESP 16; TEMP 35.9; O2SAT 99; BMI 22.4
--- NOTE | 2023-11-21 08:02 | W.ED.EXTPRO ---
HPI - Extremity Problem General: Chief complaint: Extremity Injury, Lower Stated complaint: Fall - Left foot injury Time Seen by Provider: 11/21/23 07:32 History of Present Illness: 63-year-old female who presents to the emergency room with complaints of left toe pain. She states she stubbed her toe against something and is painful when she walks across the foot. She landed on her knees. She has not had any significant discomfort or any bleeding. Related Data Home Medications Medication Instructions Recorded Confirmed Vitamin D3 1 cap PO DAILY@0900 10/17/19 11/10/23 vitamin B complex 1 tab PO DAILY@0900 10/17/19 11/10/23 Previous Rx's Medication Instructions Recorded blood-glucose meter (OneTouch #1 ea 09/30/19 Ultra2 Meter) trazodone 100 mg tablet See Rx Instructions .Route 11/29/21 .COMPLEX #90 tabs Home oxygen tank with humidifier #1 ea 12/18/21 and supplies ipratropium 20 mcg-albuterol 100 1 puff inhalation Q6H wheezing #4 05/27/22 mcg/actuation mist for inhalation grams (Combivent Respimat) atorvastatin 20 mg tablet See Rx Instructions .Route 02/13/23 .COMPLEX #90 tabs budesonide-formoterol HFA 80 See Rx Instructions .Route 04/09/23 mcg-4.5 mcg/actuation aerosol .COMPLEX #10.2 ea inhaler (Symbicort) fluticasone propionate 50 See Rx Instructions .Route 08/13/23 mcg/actuation nasal .COMPLEX #48 mL spray,suspension lisinopril 20 mg tablet See Rx Instructions .Route 09/01/23 .COMPLEX #90 tabs hydrochlorothiazide 25 mg tablet See Rx Instructions .Route 09/08/23 .COMPLEX #90 tabs nifedipine 30 mg tablet,extended See Rx Instructions .Route 09/08/23 release .COMPLEX #90 tabs metformin 1,000 mg tablet See Rx Instructions .Route 10/07/23 .COMPLEX #180 tabs pen needle, diabetic 32 gauge x #100 ea 10/07/23 (BD Evelyn 2nd Gen Pen Needle) insulin glargine 100 unit/mL (3 80 unit (0.8 mL) SUBCUT DAILY 3 10/09/23 mL) subcutaneous pen (Basaglar months #45 mL KwikPen U-100 Insulin) blood sugar diagnostic (Loop CommerceTouch #300 strips 10/20/23 Ultra Test strips) lancets 30 gauge (OneTouch Delica #100 ea 10/20/23 Plus Lancet) lancets 33 gauge #100 ea 10/20/23 guaifenesin 1,200 mg tablet, 1,200 mg PO BID nasal and sinus 10/21/23 extended release 12 hr congestion #60 tabs loratadine 10 mg tablet 10 mg PO DAILY allergies #90 tabs 10/21/23 triamcinolone acetonide 0.1 % 1 applic topical DAILY puritic 10/21/23 topical cream areas #80 grams cephalexin 500 mg capsule 500 mg PO TID 7 days #21 caps 11/04/23 Allergies Allergy/AdvReac Type Severity Reaction Status Date / Time liraglutide [From Victoza] Allergy makes her Verified 11/10/23 07:25 throw up Sulfa (Sulfonamide Allergy RASH Verified 11/10/23 07:25 Antibiotics) PFSH ED PFSH: Medical History Adult BMI 40.0-44.9 kg/sq m Nasal sinus congestion Chronic bronchitis with wheezing BHUMI (acute kidney injury) Arthralgia Essential hypertension Type 2 diabetes mellitus, with long-term current use of insulin Dyslipidemia Surgical History H/O sinus surgery History of tonsillectomy History of cholecystectomy History of skin graft Family History Other Cancer Diabetes Social History Smoking and tobacco/nicotine status: never used tobacco/nicotine Alcohol intake: never Substance/Drug Use: never Physical Exam Narrative: EXAM NARRATIVE: Examination of the left foot and ankle no pain with palpation or range of motion passively at the ankle or the forefoot no deformity. There is no redness erythema or deformity of the left great toe. No laceration no ecchymosis Course Vital Signs: Vital signs: Vital Signs Temperature 96.6 F L 11/21/23 07:38 Pulse Rate 68 11/21/23 08:50 Respiratory Rate 16 11/21/23 07:38 Blood Pressure 157/81 11/21/23 08:50 Pulse Oximetry 97 11/21/23 08:50 MDM - Extremity (Nontraumatic) Medical Decision Making Review of x-ray there is no evidence of acute fracture on 1 view we can see something that is questionable I cannot see on any other views. I do not believe this represents a fracture will have radiology over read. Ice elevate will discharge in a postop shoe. Further podiatry for follow-up Lab Data Radiology Impressions Ankle X-Ray 11/21/23 07:33 IMPRESSION: No evidence of acute fracture or dislocation Foot X-Ray 11/21/23 07:33 IMPRESSION: Mild irregularity of the bases of the proximal phalanges of the 3rd, 4th, and 5th digits which may reflect remote fracture deformities. Acute fractures are felt less likely given the appearance however correlation with site of patient's tenderness is suggested and if further evaluation is indicated, follow-up radiographs in 7-10 days could be obtained XR interpretation done by ED provider, pending radiology final review Discharge Plan Discharge Patient Disposition: Home Clinical Impression: Pain in toe of left foot Condition: Stable Prescriptions: No Action (DME) Home oxygen tank with humidifier and supplies See Rx Instructions .Route .MEDSUPPLY Qty: 1 0RF Rx Instructions: As directed 2 L/min with max 3 L/min at night time Combivent Respimat 20-100 mcg/actuation mist 1 puff inhalation Q6H Qty: 4 5RF (DME) OneTouch Ultra Test Strip See Rx Instructions .ROUTE .COMPLEX Qty: 300 0RF Dose Instruction: USE TO TEST 3 TIMES DAILY Rx Instructions: USE TO TEST 3 TIMES DAILY (DME) lancets 33 gauge misc See Rx Instructions .ROUTE .MEDSUPPLY Qty: 100 3RF Rx Instructions: test blood sugars three times a day (DME) lancets [OneTouch Delica Plus Lancet] 30 gauge misc See Rx Instructions .ROUTE .MEDSUPPLY Qty: 100 11RF Rx Instructions: THREE DAILY Basaglar KwikPen U-100 Insulin 100 unit/mL (3 mL) insulin pen 80 unit SUBCUT DAILY 90 Days Qty: 45 0RF triamcinolone acetonide 0.1 % cream 1 applic topical DAILY Qty: 80 1RF guaifenesin 1,200 mg tablet extended release 12hr 1,200 mg PO BID Qty: 60 3RF loratadine 10 mg tablet 10 mg PO DAILY Qty: 90 1RF cephalexin 500 mg capsule 500 mg PO TID 7 Days Qty: 21 0RF (DME) blood-glucose meter [OneTouch Ultra2 Meter] [facility] [place] See Rx Instructions .ROUTE .MEDSUPPLY Qty: 1 0RF Rx Instructions: As directed trazodone 100 mg tablet See Rx Instructions .ROUTE .COMPLEX Qty: 90 1RF Dose Instruction: TAKE 1 TABLET BY MOUTH EVERY DAY AT BEDTIME (8PM) Rx Instructions: TAKE 1 TABLET BY MOUTH EVERY DAY AT BEDTIME (8PM) atorvastatin 20 mg tablet See Rx Instructions .ROUTE .COMPLEX Qty: 90 3RF Dose Instruction: TAKE 1 TABLET BY MOUTH EVERY DAY AT 9AM Rx Instructions: TAKE 1 TABLET BY MOUTH EVERY DAY AT 9AM budesonide-formoterol [Symbicort] 80-4.5 mcg/actuation HFA aerosol inhaler See Rx Instructions .ROUTE .COMPLEX Qty: 10.2 0RF Dose Instruction: TAKE 2 PUFFS BY MOUTH TWICE A DAY FOR BREATHING Rx Instructions: TAKE 2 PUFFS BY MOUTH TWICE A DAY FOR BREATHING fluticasone propionate 50 mcg/actuation spray,suspension See Rx Instructions .ROUTE .COMPLEX Qty: 48 5RF Dose Instruction: SPRAY 2 SPRAYS INTO EACH NOSTRIL EVERY DAY AT 9AM NEEDED Rx Instructions: SPRAY 2 SPRAYS INTO EACH NOSTRIL EVERY DAY AT 9AM NEEDED lisinopril 20 mg tablet See Rx Instructions .ROUTE .COMPLEX Qty: 90 1RF Dose Instruction: TAKE 1 TABLET BY MOUTH EVERY DAY AT 9AM Rx Instructions: TAKE 1 TABLET BY MOUTH EVERY DAY AT 9AM nifedipine 30 mg tablet extended release See Rx Instructions .ROUTE .COMPLEX Qty: 90 0RF Dose Instruction: TAKE 1 TABLET BY MOUTH EVERY DAY Rx Instructions: TAKE 1 TABLET BY MOUTH EVERY DAY hydrochlorothiazide 25 mg tablet See Rx Instructions .ROUTE .COMPLEX Qty: 90 0RF Dose Instruction: TAKE 1 TABLET BY MOUTH EVERY DAY AT 9AM Rx Instructions: TAKE 1 TABLET BY MOUTH EVERY DAY AT 9AM metformin 1,000 mg tablet See Rx Instructions .ROUTE .COMPLEX Qty: 180 0RF Dose Instruction: TAKE 1 TABLET BY MOUTH AT 9:00A.M. AND TAKE 1 TABLET AT 6:00P.M. Rx Instructions: TAKE 1 TABLET BY MOUTH AT 9:00A.M. AND TAKE 1 TABLET AT 6:00P.M. (DME) pen needle, diabetic [BD Evelyn 2nd Gen Pen Needle] 32 gauge x 5/32 needle See Rx Instructions .ROUTE .COMPLEX Qty: 100 1RF Dose Instruction: DIRECTED Rx Instructions: DIRECTED vitamin B complex Tablet 1 tab PO DAILY@0900 Vitamin D3 1 cap PO DAILY@0900 Discharge Orders: Discharge ED (Routine); Ordered 11/21/23 Ordered By: Toy Mobley Patient Instructions: Opioid Safety, Pain Management Activity Restrictions/Additional Instructions: Thank you for choosing [facility] for your healthcare needs today. It is very important that you follow up as instructed or that you return to the Emergency Department should you have concerns or if your condition changes or worsens in any way. you are seen today with complaints of left great toe pain. Did not appear to be any acute fractures on exam there was 1 area that is questionable. You are discharged home with a postop shoe to use to protect the toe and alleviate pain. Will contact you with results when they are available. Coding Level of Care Code ED Nuclear Medicine Chief Technologist for James Friedman
[2023-11-21 08:50] VITALS: BP 157/81; PULSE 68; O2SAT 97
--- NOTE | 2023-11-25 09:20 | DCPLANNER ---
Message sent to podiatry for referral
== END 2023-11-21 08:52 | disposition home or self-care (01) ==
PROVIDERS: Emergency Provider Family Medicine
DX: M79.675 Pain in left toe(s) (principal); Z79.4 Long term (current) use of insulin; Z79.84 Long term (current) use of oral hypoglycemic drugs; I10 Essential (primary) hypertension; E11.9 Type 2 diabetes mellitus without complications; E78.5 Hyperlipidemia, unspecified
CPT/HCPCS: 73610; 73630; 99283

== ENCOUNTER → 2023-12-10 16:53 | Outpatient (BNVA) | payer MEDICARE, SELFPAY | DX: M77.32 Calcaneal spur, left foot (principal); M79.672 Pain in left foot | CPT/HCPCS: 73630 ==

== ENCOUNTER → 2023-12-29 10:29 | Outpatient (BNVA) | payer MEDICARE, SELFPAY | PROVIDERS: Visit Provider Podiatrist Foot & Ankle Surgery | DX: R03.0 Elevated blood-pressure reading, without diagnosis of hypertension; M72.2 Plantar fascial fibromatosis; Z79.4 Long term (current) use of insulin; M79.672 Pain in left foot; E11.69 Type 2 diabetes mellitus with other specified complication; Z79.84 Long term (current) use of oral hypoglycemic drugs | CPT/HCPCS: 99203 ==

== ENCOUNTER → 2024-02-09 08:45 | Outpatient (BNVA) | payer MEDICARE, SELFPAY | PROVIDERS: Visit Provider Internal Medicine | DX: E11.42 Type 2 diabetes mellitus with diabetic polyneuropathy (principal); E78.5 Hyperlipidemia, unspecified; Z79.4 Long term (current) use of insulin; E55.9 Vitamin D deficiency, unspecified; E66.9 Obesity, unspecified; R03.0 Elevated blood-pressure reading, without diagnosis of hypertension; Z68.41 Body mass index [BMI] 40.0-44.9, adult; Z79.84 Long term (current) use of oral hypoglycemic drugs | CPT/HCPCS: 99214 ==

== ENCOUNTER → 2024-05-02 13:11 | Outpatient (BNVA) | payer MEDICARE, SELFPAY | PROVIDERS: Visit Provider Internal Medicine | DX: E78.5 Hyperlipidemia, unspecified (principal); E11.9 Type 2 diabetes mellitus without complications; Z79.4 Long term (current) use of insulin; E11.42 Type 2 diabetes mellitus with diabetic polyneuropathy | CPT/HCPCS: 80053; 80061; 82043; 83036 ==

== ENCOUNTER → 2024-05-10 11:36 | Outpatient (BNVA) | payer MEDICARE, SELFPAY | PROVIDERS: Visit Provider Internal Medicine | DX: E11.42 Type 2 diabetes mellitus with diabetic polyneuropathy (principal); E78.5 Hyperlipidemia, unspecified; E11.9 Type 2 diabetes mellitus without complications; Z79.4 Long term (current) use of insulin; E55.9 Vitamin D deficiency, unspecified; E66.9 Obesity, unspecified; R03.0 Elevated blood-pressure reading, without diagnosis of hypertension; K76.0 Fatty (change of) liver, not elsewhere classified | CPT/HCPCS: 99214 ==

== ENCOUNTER → 2024-08-01 11:56 | Outpatient (BNVA) | payer MEDICARE, SELFPAY | PROVIDERS: Visit Provider Internal Medicine | DX: E11.42 Type 2 diabetes mellitus with diabetic polyneuropathy (principal); E78.5 Hyperlipidemia, unspecified; E11.9 Type 2 diabetes mellitus without complications; Z79.4 Long term (current) use of insulin; E55.9 Vitamin D deficiency, unspecified; E66.9 Obesity, unspecified; R03.0 Elevated blood-pressure reading, without diagnosis of hypertension; K76.0 Fatty (change of) liver, not elsewhere classified | CPT/HCPCS: 80053; 80061; 82043; 82306; 83036 ==

== ENCOUNTER → 2024-08-09 10:59 | Outpatient (BNVA) | payer MEDICARE, SELFPAY | PROVIDERS: Visit Provider Internal Medicine | DX: E11.42 Type 2 diabetes mellitus with diabetic polyneuropathy (principal); E78.5 Hyperlipidemia, unspecified; E11.9 Type 2 diabetes mellitus without complications; E55.9 Vitamin D deficiency, unspecified; E66.9 Obesity, unspecified; K76.0 Fatty (change of) liver, not elsewhere classified; Z79.4 Long term (current) use of insulin | CPT/HCPCS: 99214 ==

== ENCOUNTER 2024-08-29 09:38 | Emergency (ER) | payer MEDICARE, SELFPAY ==
[2024-08-29 09:46] VITALS: BP 163/85; PULSE 71; RESP 20; TEMP 36.5; O2SAT 97
--- NOTE | 2024-08-29 09:52 | ECG_ITS ---
[facility] Test Date: 2024-08-29 Pat Name: Shantelle Dent Department: Room: Gender: Female Optician Manager: : [id number] Requested By: Nori Rao Order Number: [id number] Ramos MD: Arnaud Kamara M.D. Measurements Intervals [place] Rate: 69 P: 33 MO: 224 QRS: 33 QRSD: 93 T: 92 QT: 378 QTc: 405 Interpretive Statements SINUS RHYTHM WITH FIRST DEGREE AV BLOCK NONSPECIFIC T-WAVE ABNORMALITY Compared to ECG 12/26/2021 12:07:41 First degree AV block now present T-wave abnormality now present Myocardial infarct finding no longer present Electronically Signed On 08-29-2024 22:10:33 CDT by Arnaud Kamara M.D. [email or web address] [id number]
--- NOTE | 2024-08-29 09:52 | XRR_ITS ---
PROCEDURE INFORMATION: Exam: XR Left Ribs with PA Chest Exam date and time: 08/29/2024 10:14 AM Age: 64 years old Clinical indication: Injury or trauma; Fall; Rib area, left side; Blunt trauma; Additional info: Rib pain following fall TECHNIQUE: Imaging protocol: Radiologic exam of the left ribs with PA chest. Views: 3 views Total images: 1 COMPARISON: CR XR chest 1V portable [id number] 12/26/2021 2:12 PM FINDINGS: Lungs: Unremarkable. No consolidation. Pleural spaces: Unremarkable. No pleural effusion. No pneumothorax. Heart/Mediastinum: Upper normal heart size noted. Bones/joints: Mild AC joint degenerative changes. Minimal irregularity of the anterior aspect of the left 10th rib may represent a rib fracture age-indeterminate. XR/XR ribs LT mn 3V w CXR1V [id number] IMPRESSION: 1. No acute cardiopulmonary process. 2. Minimal irregularity of the anterior aspect of the left 10th rib may represent a rib fracture age-indeterminate.
--- NOTE | 2024-08-29 09:52 | ED_ITS ---
HPI - Fall General: Chief Complaint: Fall Stated Complaint: fall - left rib pain Time Seen by Provider: 08/29/24 09:45 Source: patient Mode of arrival: EMS Limitations: no limitations History of Present Illness: Patient is a 64-year-old female presents to ED today via EMS for evaluation following a fall. Patient states she was going up a few stairs outside when she accidentally missed one which caused her to fall onto her left side/ribs. She is complaining of left chest wall/rib pain. Pain with deep inhalation. She clinically appears in no acute distress. She is not complaining of any hip pain or lower extremity discomfort. She denies striking her head or LOC. No neck or back pain. Vital signs are stable upon arrival. MD complaint: fall Onset (ago): minute(s) Fall from: standing Fall witnessed: yes, by bystander Place fall occurred: home Loss of consciousness: None Prolonged down time: no Symptoms prior to fall: none Context: tripped/slipped Location of injury: chest Associated symptoms-after fall: Reports chest pain (L rib pain); Denies abdominal pain, difficulty walking, headache(s), hematuria, lightheadedness or neck pain Related Data Home Medications ?Medication ?Instructions ?Recorded ?Confirmed Vitamin D3 1 cap PO DAILY@89910/17/19 08/09/24 vitamin B complex 1 tab PO DAILY@89910/17/19 08/09/24 Previous Rx's ?Medication ?Instructions ?Recorded blood-glucose meter (9Cookies #1 ea 09/30/19 Ultra2 Meter) trazodone 100 mg tablet See Rx Instructions .Route 0 11/29/21 .COMPLEX #90 tabs Home oxygen tank with humidifier #1 ea 12/18/21 and supplies ipratropium 20 mcg-albuterol 100 1 puff inhalation Q6H wheezing #4 05/27/22 mcg/actuation mist for inhalation grams (Combivent Respimat) budesonide-formoterol HFA 80 See Rx Instructions .Rout e 04/09/23 mcg-4.5 mcg/actuation aerosol .COMPLEX #10.2 ea inhaler (Symbicort) fluticasone propionate 50 See Rx Instructions .Route 0 08/13/23 mcg/actuation nasal .COMPLEX #48 mL spray,suspension lancets 30 gauge (9Cookies Delica #100 ea 10/20/23 Plus Lancet) lancets 33 gauge #100 ea 10/20/23 loratadine 10 mg tablet 10 mg PO DAILY allergies #90 tabs 10/21/23 triamcinolone acetonide 0.1 % 1 applic topical DAILY p uritic 10/21/23 topical cream areas #80 grams pen needle, diabetic 32 gauge x #100 ea 11/30/23 5/32 (BD Evelyn 2nd Gen Pen Needle) diclofenac sodium 1 % topical gel 2 g topical QID #100 grams 12/10/23 (Voltaren Arthritis Pain) atorvastatin 20 mg tablet See Rx Instructions .Route 0 12/11/23 .COMPLEX #90 tabs cephalexin 500 mg capsule 500 mg PO TID 7 days #21 cap s 01/27/24 metformin 1,000 mg tablet See Rx Instructions .Route 1 04/10/23 .COMPLEX #180 tabs lisinopril 20 mg tablet See Rx Instructions .Route 1 04/21/23 .COMPLEX #90 tabs hydrochlorothiazide 25 mg tablet See Rx Instructions . Route 03/14/24 .COMPLEX #90 tabs nifedipine 30 mg tablet,extended See Rx Instructions . Route 03/14/24 release .COMPLEX #90 tabs insulin glargine 100 unit/mL (3 80 unit (0.8 mL) SUBCU T DAILY #75 03/21/24 mL) subcutaneous pen (Basaglar mL KwikPen U-100 Insulin) blood sugar diagnostic (9Cookies #300 strips 06/29/24 Ultra Test strips) tirzepatide 2.5 mg/0.5 mL 2.5 mg (0.5 mL) SUBCUT Q7D 1 month 08/09/24 subcutaneous pen injector #2.5 mL (Sandra) hydrocodone 5 mg-acetaminophen 325 1 tab PO Q6H PRN pa in #14 tabs 08/29/24 mg tablet Allergies Allergy/AdvReac Type Severity Reaction Status Date / Time liraglutide (From Victoza) Allergy makes her Verified 08/09/24 07:48 throw up Sulfa (Sulfonamide Allergy RASH Verified 08/09/24 07:48 Antibiotics) Review of Systems Const: Denies: fever(s) Card: Reports: chest pain (L rib pain); Denies: palpitations, irregular heart rhythm, edema, swelling of feet/ankles, lightheadedness, syncope, pre-syncope, dyspnea on exertion or orthopnea Resp: Reports: pain on inspiration; Denies: dyspnea, wheezing, hemoptysis or chest congestion GI: Denies: abdominal pain, nausea or vomiting : Denies: flank pain or hematuria Musc: Denies: neck pain, back pain, extremity pain, extremity swelling or joint swelling Neuro: Denies: headache(s), numbness in extremities, weakness in extremities, sensory changes, difficulty walking or dizziness PFSH ED PFSH: Medical History Fatty liver Left foot pain Adult BMI 40.0-44.9 kg/sq m Nasal sinus congestion Chronic bronchitis with wheezing BHUMI (acute kidney injury) Arthralgia Essential hypertension Type 2 diabetes mellitus, with long-term current use of insulin Dyslipidemia Surgical History H/O sinus surgery History of tonsillectomy History of cholecystectomy History of skin graft Family History Other Cancer Diabetes Social History Smoking and tobacco/nicotine status: never used tobacco/nicotine Alcohol intake: never Substance/Drug Use: never Physical Exam Const: COMMON NORMALS: no acute distress, average body habitus, patient oriented x3, no limitations, healthy appearing, alert and well nourished GENERAL APPEARANCE: cooperative ORIENTATION/CONSCIOUSNESS: Yes awake, Yes oriented to person, Yes oriented to place and Yes oriented to time HENMT: COMMON NORMALS: normocephalic, atraumatic and TM's normal bilaterally HEAD & SCALP: normal to inspection, normocephalic and atraumatic; no Carnes's sign, no hematoma and no raccoon eyes FACE & SINUS: normal facial exam TYMPANIC MEMBRANE: TM's normal bilaterally MOUTH: other (no intraoral injuries noted) Eye: COMMON NORMALS: Equal, round and reactive pupils present and EOMs intact bilaterally GENERAL EYE: appearance normal, both eyes and all related structures and normal light reflex PUPIL: Yes Equal, round and reactive pupils present DIRECT OPHTHALMOSCOPY: Yes normal light reflex Neck/C-Spine: COMMON NORMALS: full ROM GENERAL: Yes normal visual inspection CERVICAL SPINE: Yes cervical ROM normal, No pain with cervical ROM, No Cervical spine tenderness, No step off deformity and No Paracervical muscle tenderness Chest: COMMONS NORMALS: normal inspection of the chest OTHER: TTP L anteriolateral mid to lower ribs; no crepitus; breath sounds normal Resp: COMMON NORMALS: normal respiratory effort and clear to auscultation bilaterally AUSCULTATION: clear to auscultation bilaterally Cardio: COMMON NORMALS: regular rate and regular rhythm RATE: regular rate RHYTHM: regular rhythm GI: COMMON NORMALS: Normal to inspection, nondistended, normoactive bowel sounds present, Soft to palpation, non-tender, No hepatosplenomegaly present and no masses INSPECTION: Yes normal to inspection and No abdominal wall ecchymosis AUSCULTATION: Yes normoactive bowel sounds PALPATION: Yes Soft to palpation and Yes No hepatosplenomegaly present Back/Pelvis: COMMON NORMALS: thoracic and lumbar spine normal to inspection, no thoracic nor lumbar tenderness and thoraco-lumbar ROM normal Extremity: COMMON NORMALS: normal to inspection and full ROM GENERAL: Yes normal exam except as noted Neuro: MALCOLM COMA SCALE: document GCS findings Malcolm coma scale eye opening: Spontaneous Malcolm coma scale verbal response: Orientated [place] coma scale motor response: Obey commands Malcolm coma scale total score: 15 COMMON NORMALS: patient oriented x3, CN's II-XII intact bilaterally, moves all extremities, no focal motor deficits, no sensory deficits noted and gait normal SENSORIUM/ORIENTATION: Yes alert, Yes oriented to person, Yes oriented to place and Yes oriented to time SPEECH: speech normal GAIT: Yes Normal gait present Skin: COMMON NORMALS: no rashes or lesions noted GENERAL SKIN EXAM: no rashes or lesions noted TRAUMA: no lacerations or abrasions Course Vital Signs: Vital signs: Vital Signs Temperature 97.7 F 08/29/24 09:46 Pulse Rate 70 08/29/24 09:54 Respiratory Rate 16 08/29/24 09:54 Blood Pressure 163/85 08/29/24 09:54 Pulse Oximetry 98 08/29/24 09:54 Oxygen Delivery Me thod Room Air 08/29/24 09:54 MDM - Fall Medical Decision Making Patient here following a trip and fall onto her right side. Clinically she has tenderness to her left anterior lateral ribs without crepitus. Breath sounds are normal. CXR/L rib series showing minimal irregularity of the anterior 10th rib that may represent a fracture. She is tender here. She is not having any significant abdominal tenderness. EKG performed showing no acute changes from previous. Patient will be treated with pain medications for her rib fracture. Return ED precautions discussed. Medical Records I reviewed the patient's medical records. Lab Data Radiology Impressions Ribs X-Ray 08/29/24 09:52 IMPRESSION: 1. No acute cardiopulmonary process. 2. Minimal irregularity of the anterior aspect of the left 10th rib may represent a rib fracture age-indeterminate. All radiology interpretation(s) finalized by discharge Discharge Plan Discharge Patient Disposition: Home Clinical Impression: Fracture of left tenth rib Condition: Stable Prescriptions: New hydrocodone-acetaminophen 5-325 mg tablet 1 tab PO Q6H PRN (Reason: pain) Qty: 14 0RF No Action (DME) Home oxygen tank with humidifier and supplies See Rx Instructions .Route .MEDSUPPLY Qty: 1 0RF Rx Instructions: As directed 2 L/min with max 3 L/min at night time Combivent Respimat 20-100 mcg/actuation mist 1 puff inhalation Q6H Qty: 4 5RF (DME) lancets 33 gauge misc See Rx Instructions .ROUTE .MEDSUPPLY Qty: 100 3RF Rx Instructions: test blood sugars three times a day (DME) lancets [OneTouch Delica Plus Lancet] 30 gauge misc See Rx Instructions .ROUTE .MEDSUPPLY Qty: 100 11RF Rx Instructions: THREE DAILY diclofenac sodium [Voltaren Arthritis Pain] 1 % gel 2 g topical QID Qty: 100 0RF Rx Instructions: apply to single elbow, wrist or hand; for hand includes palm/fingers/back of hand Mounjaro 2.5 mg/0.5 mL pen injector 2.5 mg SUBCUT Q7D 30 Days Qty: 2.5 0RF triamcinolone acetonide 0.1 % cream 1 applic topical DAILY Qty: 80 1RF loratadine 10 mg tablet 10 mg PO DAILY Qty: 90 1RF metformin 1,000 mg tablet See Rx Instructions .ROUTE .COMPLEX Qty: 180 1RF Dose Instruction: TAKE 1 TABLET BY MOUTH AT 9:00A.M. AND TAKE 1 TABLET AT 6:00P.M. Rx Instructions: TAKE 1 TABLET BY MOUTH AT 9:00A.M. AND TAKE 1 TABLET AT 6:00P.M. cephalexin 500 mg capsule 500 mg PO TID 7 Days Qty: 21 0RF (DME) blood-glucose meter [OneTouch Ultra2 Meter] [facility] See Rx Instructions .ROUTE .MEDSUPPLY Qty: 1 0RF Rx Instructions: As directed trazodone 100 mg tablet See Rx Instructions .ROUTE .COMPLEX Qty: 90 1RF Dose Instruction: TAKE 1 TABLET BY MOUTH EVERY DAY AT BEDTIME (8PM) Rx Instructions: TAKE 1 TABLET BY MOUTH EVERY DAY AT BEDTIME (8PM) budesonide-formoterol [Symbicort] 80-4.5 mcg/actuation HFA aerosol inhaler See Rx Instructions .ROUTE .COMPLEX Qty: 10.2 0RF Dose Instruction: TAKE 2 PUFFS BY MOUTH TWICE A DAY FOR BREATHING Rx Instructions: TAKE 2 PUFFS BY MOUTH TWICE A DAY FOR BREATHING fluticasone propionate 50 mcg/actuation spray,suspension See Rx Instructions .ROUTE .COMPLEX Qty: 48 5RF Dose Instruction: SPRAY 2 SPRAYS INTO EACH NOSTRIL EVERY DAY AT 9AM NEEDED Rx Instructions: SPRAY 2 SPRAYS INTO EACH NOSTRIL EVERY DAY AT 9AM NEEDED (DME) pen needle, diabetic [BD Evelyn 2nd Gen Pen Needle] 32 gauge x 5/32 needle See Rx Instructions .ROUTE .COMPLEX Qty: 100 1RF Dose Instruction: DIRECTED Rx Instructions: DIRECTED atorvastatin 20 mg tablet See Rx Instructions .ROUTE .COMPLEX Qty: 90 0RF Dose Instruction: TAKE 1 TABLET BY MOUTH EVERY DAY AT 9AM Rx Instructions: TAKE 1 TABLET BY MOUTH EVERY DAY AT 9AM lisinopril 20 mg tablet See Rx Instructions .ROUTE .COMPLEX Qty: 90 1RF Dose Instruction: TAKE 1 TABLET BY MOUTH EVERY DAY AT 9AM Rx Instructions: TAKE 1 TABLET BY MOUTH EVERY DAY AT 9AM hydrochlorothiazide 25 mg tablet See Rx Instructions .ROUTE .COMPLEX Qty: 90 0RF Dose Instruction: TAKE 1 TABLET BY MOUTH EVERY DAY AT 9AM Rx Instructions: TAKE 1 TABLET BY MOUTH EVERY DAY AT 9AM nifedipine 30 mg tablet extended release See Rx Instructions .ROUTE .COMPLEX Qty: 90 0RF Dose Instruction: TAKE 1 TABLET BY MOUTH EVERY DAY Rx Instructions: TAKE 1 TABLET BY MOUTH EVERY DAY Sravanthi Claros U-100 Insulin 100 unit/mL (3 mL) insulin pen 80 unit SUBCUT DAILY Qty: 75 1RF (DME) OneTouch Ultra Test Strip See Rx Instructions .ROUTE .COMPLEX Qty: 300 0RF Dose Instruction: USE TO TEST 3 TIMES DAILY Rx Instructions: USE TO TEST 3 TIMES DAILY vitamin B complex Tablet 1 tab PO DAILY@0900 Vitamin D3 1 cap PO DAILY@0900 Discharge Orders: Discharge ED (Routine); Ordered 08/29/24 Ordered By: Nori Rao Patient Instructions: Rib Fracture (ED), Opioid Safety, Pain Management, Fractures - Rib Activity Restrictions/Additional Instructions: As we discussed, you may use [id number] medications to treat discomfort as well as topical lidocaine/patches and ice and heat. You may use prescription medications for severe pain. As we discussed, you need to return to the emergency department for worsening chest pain, shortness of breath, difficulty breathing, severe cough or fevers, significant bruising to your abdomen, or abdominal pain, or any other concerns you may have. Print Language: Gabonese Coding Level of Care Code ED Senior [employer] Programmer for James Friedman
[2024-08-29 09:54] VITALS: BP 163/85; PULSE 70; RESP 16; O2SAT 98
[2024-08-29 11:01] VITALS: BP 162/86; PULSE 72; O2SAT 97
== END 2024-08-29 11:01 | disposition home or self-care (01) ==
PROVIDERS: Emergency Provider Physician Assistant
DX: S22.32XA Fracture of one rib, left side, initial encounter for closed fracture (principal); Z79.4 Long term (current) use of insulin; E78.5 Hyperlipidemia, unspecified; E11.9 Type 2 diabetes mellitus without complications; I10 Essential (primary) hypertension; W10.9XXA Fall (on) (from) unspecified stairs and steps, initial encounter
CPT/HCPCS: 71101; 93005; 99284

== ENCOUNTER → 2024-09-06 10:50 | Outpatient (BNVA) | payer MEDICARE, SELFPAY | PROVIDERS: PCP Family Medicine; Visit Provider Internal Medicine | DX: E11.42 Type 2 diabetes mellitus with diabetic polyneuropathy (principal); E78.5 Hyperlipidemia, unspecified; E11.9 Type 2 diabetes mellitus without complications; Z79.4 Long term (current) use of insulin; E55.9 Vitamin D deficiency, unspecified; E66.9 Obesity, unspecified | CPT/HCPCS: 99214 ==

== ENCOUNTER → 2024-11-01 10:02 | Outpatient (BNVA) | payer MEDICARE, SELFPAY | PROVIDERS: PCP Family Medicine; Visit Provider Internal Medicine | DX: K76.0 Fatty (change of) liver, not elsewhere classified (principal); E11.42 Type 2 diabetes mellitus with diabetic polyneuropathy; E11.9 Type 2 diabetes mellitus without complications; Z79.4 Long term (current) use of insulin; E78.5 Hyperlipidemia, unspecified | CPT/HCPCS: 80053; 80061; 82043; 83036 ==

== ENCOUNTER → 2024-11-08 11:34 | Outpatient (BNVA) | payer MEDICARE, SELFPAY | PROVIDERS: Visit Provider Internal Medicine | DX: E11.42 Type 2 diabetes mellitus with diabetic polyneuropathy (principal); E78.5 Hyperlipidemia, unspecified; Z79.4 Long term (current) use of insulin; E55.9 Vitamin D deficiency, unspecified | CPT/HCPCS: 99214 ==

== ENCOUNTER → 2024-12-29 14:03 | Outpatient (BNVA) | payer MEDICARE, SELFPAY | PROVIDERS: Visit Provider Nurse Practitioner Family | DX: L57.8 Other skin changes due to chronic exposure to nonionizing radiation (principal); L30.9 Dermatitis, unspecified; R21 Rash and other nonspecific skin eruption | CPT/HCPCS: 11104; 99203 ==